=== PATIENT | male | born 1960 | race Two or more races ===

== ENCOUNTER 2022-01-17 17:22 | Inpatient (IN) | payer MEDICAID, OTHER ==
[~2022-01-17] VITALS: Ht 175.3 cm; Wt 73.5 kg
[~2022-01-17 17:22] MED LIST: CALCIUM CHLOR(10%) 100MG/ML 10ML SYRINGE IV ONE; SODIUM BICARBONATE 8.4% INJ 50ML SYRINGE IV ONE
[2022-01-17] MEDS ORDERED: DEXTROSE (50%) 50ML SYRG IV ONE (17:26)
[2022-01-17] MEDS ORDERED: DEXTROSE 50% SYRINGE 50 ML IV ONE (17:26)
[2022-01-17] MEDS ORDERED: SODIUM BICARBONATE 8.4 % INJ 50ML VIAL IV ONE (17:30)
[2022-01-17] MEDS ORDERED: levETIRAcetam 500 MG/5ML INJ IV ONE (17:31)
[2022-01-17] MEDS ORDERED: CALCIUM CHL 100MG/ML 1,000 MG in D5W 5% 100 ML IV ONE (17:33)
[2022-01-17] MEDS ORDERED: LACTATED RINGER'S 1,000 ML IV ONE (17:45)
[2022-01-17] MEDS ORDERED: GLUCAGON HYDROCHLORIDE (RDNA) 1 MG VIAL IV ONE (19:00)
[2022-01-17] MEDS ORDERED: DEXTROSE 10% 1,000 ML IV ONE (19:00)
[2022-01-17 19:12] LABS: Alanine Aminotransferase 59 U/L (16-61); Albumin 3.3 g/dL (3.4-5.0); Anion Gap 10 (5-15); Aspartate Aminotransferase 40 U/L (15-37); Blood Urea Nitrogen 52 mg/dL (7-18); Calcium 9.9 mg/dL (8.5-10.1); Carbon Dioxide 26 mmol/L (21-32); Chloride 106 mmol/L (98-107); GFR African American 15 mL/min; GFR Non-African American 12 mL/min; Glucose 106 mg/dL (74-106); Magnesium 2.5 mg/dL (1.6-2.6); Salicylate < 1.7 mg/dL (2.8-20.0); Sodium 142 mmol/L (136-145)
[2022-01-17 19:14] LABS: Acetaminophen < 2.0 ug/mL (10-30)
[2022-01-17 19:15] LABS: Alkaline Phosphatase 120 U/L (45-117); Bilirubin, Total 0.4 mg/dL (0.2-1.0); Total Protein 7.3 g/dL (6.4-8.2)
[2022-01-17] MEDS ORDERED: NALOXONE HCL 1MG/ML 2ML SYRINGE IV ONE (20:30)
[2022-01-17 20:40] LABS: Hematocrit 36.5 % (41.0-53.0); Mean Corpuscular Hemoglobin 31.4 pg (28.0-32.0); Mean Corpuscular Hgb Conc. 32.7 g/dL (32.0-36.0); Mean Corpuscular Volume 95.9 fL (80.0-100.0); Red Blood Cells 3.81 10^6/uL (4.5-5.90); Red Cell Distribution Width 13.8 % (11.8-14.3); White Blood Cell 11.5 10^3/uL (4.4-10.8)
[2022-01-17 20:42] LABS: Basophils % (manual) 0 (0.0-2.0); Blast Cells 0; Metamyelocytes % 0; Myelocytes % 0; Promyelocytes % 0; Reactive Lymphocytes 0
[2022-01-17 21:52] LABS: Band Neutrophils % (manual) 2; Eosinophils % (manual) 25 (0-7); Lymphocytes % (manual) 4 (10.0-50.0); Monocytes % (manual) 5 (0-12)
[2022-01-18] MEDS ORDERED: NITROGLYCERIN 0.4 MG SL TAB SL PRN (00:15)
[2022-01-18] MEDS ORDERED: ONDANSETRON HCL 4 MG/2 ML VIAL IV PRN (00:15)
[2022-01-18] MEDS ORDERED: MORPHINE SULFATE INJ 2 MG/ml SYRG IV PRN (00:15)
[2022-01-18] MEDS ORDERED: DOCUSATE SOD 100 MG CAP PO PRN (00:15)
[2022-01-18] MEDS ORDERED: ALBUMIN 25% 100 ML IV ONE (00:15)
[2022-01-18] MEDS ORDERED: DEXTROSE (50%) 50ML SYRG IV PRN (00:15)
[2022-01-18] MEDS ORDERED: ACETAMINOPHEN 325 MG TAB PO PRN (00:15)
[2022-01-18] MEDS ORDERED: HYDROcodone-ACET 5/325MG TAB PO PRN (00:15)
[2022-01-18] MEDS: SODIUM CHLOR 0.9% PF (SALINE LOCK) 10ML VIAL/SYR IV SCH ×3 (06:06→21:22)
[2022-01-18 06:16] LABS: Hematocrit 32.9 % (41.0-53.0); Hemoglobin 10.5 g/dL (13.5-17.5); Mean Corpuscular Hemoglobin 30.6 pg (28.0-32.0); Mean Corpuscular Volume 95.5 fL (80.0-100.0); Red Blood Cells 3.44 10^6/uL (4.5-5.90); Red Cell Distribution Width 14.3 % (11.8-14.3)
[2022-01-18] MEDS: InsuLIN REG 1unit/0.01ml Soln (100units/ml) SC SCH ×3 (06:27→18:00)
[2022-01-18] MEDS: ACCU-CHEK COMFORT CURVE STRIP VI SCH ×3 (06:28→18:00)
[2022-01-18 06:33] LABS: Albumin 3.4 g/dL (3.4-5.0); Calcium 9.3 mg/dL (8.5-10.1); Potassium 4.2 mmol/L (3.5-5.1)
[2022-01-18 06:37] LABS: BUN/Creatinine Ratio 11.2; Bilirubin, Total 0.4 mg/dL (0.2-1.0); Total Protein 6.9 g/dL (6.4-8.2)
[2022-01-18 06:52] LABS: Basophils % (manual) 0 (0.0-2.0); Blast Cells 0; Metamyelocytes % 0; Myelocytes % 0; Promyelocytes % 0; Reactive Lymphocytes 0
[2022-01-18 08:11] LABS: Band Neutrophils % (manual) 3; Eosinophils % (manual) 27 (0-7); Lymphocytes % (manual) 11 (10.0-50.0); Monocytes % (manual) 6 (0-12)
[2022-01-18] MEDS ORDERED: SODIUM CHL 0.9% 1000 ML BAG XX ONE (09:15)
[2022-01-18] MEDS: FAMOTIDINE (10MG/ML) 2ML VL IV SCH ×2 (12:55→21:16)
[2022-01-18 13:30] VITALS: BP 139/62
[2022-01-18 17:00] VITALS: BP 133/81
[2022-01-18] MEDS ORDERED: EPOETIN ALFA-EPBX 10,000 UNIT/1ML VIAL SC ONE (21:00)
[2022-01-18 22:00] VITALS: BP 148/69
[2022-01-18] MEDS ORDERED: LORazepam 2MG/ML-1ML VIAL IV PRN (22:15)
[2022-01-18 23:10] LABS: Cholesterol 96 mg/dL (< 200); LDL Cholesterol 44 mg/dL (< 100); Triglycerides 120 mg/dL (< 150)
[2022-01-18 23:13] LABS: HDL Cholesterol 45 mg/dL (40-59)
[2022-01-19 05:00] VITALS: BP 140/99
[2022-01-19] MEDS: ACCU-CHEK COMFORT CURVE STRIP VI SCH ×4 (05:48→17:48)
[2022-01-19] MEDS: SODIUM CHLOR 0.9% PF (SALINE LOCK) 10ML VIAL/SYR IV SCH ×3 (05:48→22:10)
[2022-01-19] MEDS: InsuLIN REG 1unit/0.01ml Soln (100units/ml) SC SCH ×4 (06:00→17:48)
[2022-01-19 06:39] LABS: Hematocrit 32.7 % (41.0-53.0); Hemoglobin 10.9 g/dL (13.5-17.5); Mean Corpuscular Hemoglobin 32.1 pg (28.0-32.0); Mean Corpuscular Hgb Conc. 33.4 g/dL (32.0-36.0); Mean Corpuscular Volume 96.3 fL (80.0-100.0); White Blood Cell 11.2 10^3/uL (4.4-10.8)
[2022-01-19 06:52] LABS: Band Neutrophils % (manual) 0; Basophils % (manual) 0 (0.0-2.0); Blast Cells 0; Metamyelocytes % 0; Myelocytes % 0; Promyelocytes % 0; Reactive Lymphocytes 0
[2022-01-19 06:54] LABS: Albumin 3.5 g/dL (3.4-5.0); BUN/Creatinine Ratio 9.6; Bilirubin, Total 0.6 mg/dL (0.2-1.0); Calcium 8.7 mg/dL (8.5-10.1); Potassium 4.4 mmol/L (3.5-5.1); Total Protein 6.7 g/dL (6.4-8.2)
[2022-01-19 08:38] LABS: Eosinophils % (manual) 40 (0-7); Lymphocytes % (manual) 8 (10.0-50.0); Monocytes % (manual) 1 (0-12)
[2022-01-19 09:00] VITALS: BP 125/71
[2022-01-19] MEDS: ASPirin-EC 81 mg tab PO SCH (11:39)
[2022-01-19] MEDS: FAMOTIDINE (10MG/ML) 2ML VL IV SCH ×2 (11:39→22:10)
[2022-01-19 13:00] VITALS: BP 138/84
[2022-01-19 16:48] VITALS: BP 140/77
[2022-01-19 22:00] VITALS: BP 165/67
[2022-01-19] MEDS: ATORVASTATIN 20 MG TAB PO SCH (22:10)
[2022-01-20 05:00] VITALS: BP 147/75
[2022-01-20] MEDS: InsuLIN REG 1unit/0.01ml Soln (100units/ml) SC SCH ×4 (06:00→18:00)
[2022-01-20] MEDS: ACCU-CHEK COMFORT CURVE STRIP VI SCH ×4 (06:32→18:00)
[2022-01-20] MEDS: SODIUM CHLOR 0.9% PF (SALINE LOCK) 10ML VIAL/SYR IV SCH ×3 (06:32→22:14)
[2022-01-20] MEDS: FAMOTIDINE (10MG/ML) 2ML VL IV SCH ×2 (10:18→22:09)
[2022-01-20] MEDS: ASPirin-EC 81 mg tab PO SCH (10:18)
[2022-01-20] MEDS ORDERED: SODIUM CHL 0.9% 1000 ML BAG XX ONE (15:30)
[2022-01-20] MEDS ORDERED: EPOETIN ALFA-EPBX 10,000 UNIT/1ML VIAL SC ONE (21:00)
[2022-01-20 22:00] VITALS: BP 136/72
[2022-01-20] MEDS: ATORVASTATIN 20 MG TAB PO SCH (22:09)
[2022-01-21] MEDS: InsuLIN REG 1unit/0.01ml Soln (100units/ml) SC SCH ×5 (00:23→23:12)
[2022-01-21] MEDS: ACCU-CHEK COMFORT CURVE STRIP VI SCH ×4 (00:24→18:08)
[2022-01-21 05:00] VITALS: BP 127/67
[2022-01-21] MEDS: SODIUM CHLOR 0.9% PF (SALINE LOCK) 10ML VIAL/SYR IV SCH ×3 (06:22→22:00)
[2022-01-21] MEDS ORDERED: EPOETIN ALFA-EPBX 10,000 UNIT/1ML VIAL SC ONE (08:00)
[2022-01-21 08:59] LABS: Free T4 (Free Thyroxine) 0.99 ng/dL (0.89-1.76)
[2022-01-21 09:00] LABS: Folate (Folic Acid) 6.95 ng/mL (5.38-24)
[2022-01-21] MEDS: FAMOTIDINE (10MG/ML) 2ML VL IV SCH ×2 (10:15→22:11)
[2022-01-21] MEDS: ASPirin-EC 81 mg tab PO SCH (10:15)
[2022-01-21 11:26] LABS: Hepatitis A Ab IgM Negative; Hepatitis B Core IgM Negative; Hepatitis C Antibody Negative (Negative)
[2022-01-21] MEDS: ATORVASTATIN 20 MG TAB PO SCH (22:00)
[2022-01-22] MEDS: ACCU-CHEK COMFORT CURVE STRIP VI SCH ×4 (02:28→19:28)
[2022-01-22] MEDS: SODIUM CHLOR 0.9% PF (SALINE LOCK) 10ML VIAL/SYR IV SCH ×3 (06:00→22:12)
[2022-01-22] MEDS: InsuLIN REG 1unit/0.01ml Soln (100units/ml) SC SCH ×3 (06:00→19:28)
[2022-01-22] MEDS ORDERED: SODIUM CHL 0.9% 1000 ML BAG XX ONE (07:00)
[2022-01-22 09:00] VITALS: BP 150/76
[2022-01-22] MEDS: ASPirin-EC 81 mg tab PO SCH (11:02)
[2022-01-22] MEDS: FAMOTIDINE (10MG/ML) 2ML VL IV SCH (11:02)
[2022-01-22 13:00] VITALS: BP 162/80
[2022-01-22 17:00] VITALS: BP 155/59
[2022-01-22] MEDS ORDERED: VANCOMYCIN 1GM/250ML 250 ML IV ONE (21:00)
[2022-01-22] MEDS ORDERED: VANCOMYCIN PER PHARMACY 0 MG IV SCH (21:00)
[2022-01-22] MEDS ORDERED: EPOETIN ALFA-EPBX 10,000 UNIT/1ML VIAL SC ONE (21:00)
[2022-01-22 22:00] VITALS: BP 152/83
[2022-01-22] MEDS: ATORVASTATIN 20 MG TAB PO SCH (22:12)
[2022-01-23] MEDS: ACCU-CHEK COMFORT CURVE STRIP VI SCH ×4 (00:28→17:41)
[2022-01-23] MEDS: InsuLIN REG 1unit/0.01ml Soln (100units/ml) SC SCH ×4 (00:28→17:48)
[2022-01-23 05:00] VITALS: BP 155/74
[2022-01-23] MEDS: SODIUM CHLOR 0.9% PF (SALINE LOCK) 10ML VIAL/SYR IV SCH ×3 (05:53→21:54)
[2022-01-23 06:54] LABS: Albumin 3.3 g/dL (3.4-5.0); BUN/Creatinine Ratio 9.7; Calcium 8.6 mg/dL (8.5-10.1); Phosphorus 4.4 mg/dL (2.5-4.90); Potassium 4.8 mmol/L (3.5-5.1)
[2022-01-23 09:00] VITALS: BP 150/79
[2022-01-23] MEDS ORDERED: HEPARIN 1,000 UNITS/ml 1ML VIAL IV ONE ×2 (10:30)
[2022-01-23] MEDS: ASPirin-EC 81 mg tab PO SCH (10:38)
[2022-01-23 13:00] VITALS: BP 133/82
[2022-01-23] MEDS ORDERED: VANCOMYCIN 1GM/250ML 250 ML IV ONE (14:15)
[2022-01-23 16:36] VITALS: BP 144/76
[2022-01-23 21:36] VITALS: BP 136/78
[2022-01-23] MEDS: ATORVASTATIN 20 MG TAB PO SCH (21:54)
[2022-01-24 04:50] VITALS: BP 138/79
[2022-01-24 05:22] LABS: Hematocrit 31.6 % (41.0-53.0); Hemoglobin 10.5 g/dL (13.5-17.5); Mean Corpuscular Hgb Conc. 33.4 g/dL (32.0-36.0); Mean Corpuscular Volume 95.8 fL (80.0-100.0); Red Cell Distribution Width 13.9 % (11.8-14.3); White Blood Cell 9.2 10^3/uL (4.4-10.8)
[2022-01-24 05:27] LABS: Potassium 4.5 mmol/L (3.5-5.1)
[2022-01-24 05:33] LABS: Albumin 3.2 g/dL (3.4-5.0); BUN/Creatinine Ratio 9.1; Calcium 8.8 mg/dL (8.5-10.1)
[2022-01-24 05:36] LABS: Basophils % (manual) 0 (0.0-2.0); Blast Cells 0; Metamyelocytes % 0; Myelocytes % 0; Promyelocytes % 0; Reactive Lymphocytes 0
[2022-01-24 05:42] LABS: Bilirubin, Total 0.3 mg/dL (0.2-1.0); Total Protein 6.8 g/dL (6.4-8.2)
[2022-01-24] MEDS: InsuLIN REG 1unit/0.01ml Soln (100units/ml) SC SCH ×4 (06:00→17:46)
[2022-01-24] MEDS: ACCU-CHEK COMFORT CURVE STRIP VI SCH ×4 (06:10→17:32)
[2022-01-24] MEDS: SODIUM CHLOR 0.9% PF (SALINE LOCK) 10ML VIAL/SYR IV SCH ×3 (06:11→22:28)
[2022-01-24] MEDS ORDERED: PIPERACILLIN-TAZOB 0.75 GM in D5W 5% 50 ML IV SCH (08:15)
[2022-01-24 09:00] VITALS: BP_SYST 112; BP_SYST 158; BP_DIAS 61; BP_DIAS 74
[2022-01-24 09:39] LABS: Band Neutrophils % (manual) 2; Eosinophils % (manual) 51 (0-7); Lymphocytes % (manual) 10 (10.0-50.0); Monocytes % (manual) 4 (0-12)
[2022-01-24] MEDS: FAMOTIDINE (10MG/ML) 2ML VL IV SCH (10:20)
[2022-01-24] MEDS: ASPirin-EC 81 mg tab PO SCH (10:20)
[2022-01-24] MEDS: PIPERACILLIN-TAZOB 3.375GM 100 ML IV SCH ×2 (10:53→22:23)
[2022-01-24 13:00] VITALS: BP 144/70
[2022-01-24 18:11] VITALS: BP 162/79
[2022-01-24 22:00] VITALS: BP 138/79
[2022-01-24] MEDS: ATORVASTATIN 20 MG TAB PO SCH (22:23)
[2022-01-25] MEDS: ACCU-CHEK COMFORT CURVE STRIP VI SCH ×4 (00:03→17:31)
[2022-01-25] MEDS: InsuLIN REG 1unit/0.01ml Soln (100units/ml) SC SCH ×4 (00:16→17:30)
[2022-01-25 05:00] VITALS: BP 177/85
[2022-01-25] MEDS: SODIUM CHLOR 0.9% PF (SALINE LOCK) 10ML VIAL/SYR IV SCH ×3 (06:08→22:00)
[2022-01-25 06:09] LABS: Hematocrit 33.7 % (41.0-53.0); Hemoglobin 11.1 g/dL (13.5-17.5); Mean Corpuscular Hemoglobin 31.6 pg (28.0-32.0); Mean Corpuscular Hgb Conc. 32.9 g/dL (32.0-36.0); Mean Corpuscular Volume 96.2 fL (80.0-100.0); Red Cell Distribution Width 14.2 % (11.8-14.3); White Blood Cell 9.9 10^3/uL (4.4-10.8)
[2022-01-25 06:28] LABS: Basophils % (manual) 0 (0.0-2.0); Blast Cells 0; Metamyelocytes % 0; Myelocytes % 0; Promyelocytes % 0; Reactive Lymphocytes 0
[2022-01-25 06:33] LABS: Albumin 3.4 g/dL (3.4-5.0); Potassium 4.9 mmol/L (3.5-5.1)
[2022-01-25 06:35] LABS: BUN/Creatinine Ratio 9.9; Calcium 9.2 mg/dL (8.5-10.1)
[2022-01-25 06:39] LABS: Bilirubin, Total 0.5 mg/dL (0.2-1.0)
[2022-01-25 08:36] LABS: Band Neutrophils % (manual) 3; Eosinophils % (manual) 51 (0-7); Lymphocytes % (manual) 9 (10.0-50.0); Monocytes % (manual) 4 (0-12)
[2022-01-25 09:00] VITALS: BP 158/75
[2022-01-25] MEDS: PIPERACILLIN-TAZOB 3.375GM 100 ML IV SCH (09:52)
[2022-01-25] MEDS: ASPirin-EC 81 mg tab PO SCH (09:52)
[2022-01-25] MEDS ORDERED: METOCLOPRAMIDE HCL 10 MG TAB PO PRN (12:30)
[2022-01-25 13:00] VITALS: BP 161/78
[2022-01-25] MEDS: PIPERACILLIN-TAZOB 2.25GM 50 ML IV SCH ×2 (14:00→22:09)
[2022-01-25] MEDS ORDERED: LIDOCAINE 2%HCL (LOCAL ANESTH.) INJ 10ml MDV IJ ONE (14:45)
[2022-01-25] MEDS ORDERED: LIDOCAINE 2% (LOCAL ANESTH.) PF 5ml SDV ONE (15:24)
[2022-01-25 17:19] VITALS: BP 161/89
[2022-01-25] MEDS ORDERED: VANCOMYCIN 1GM/250ML 250 ML IV ONE (18:00)
[2022-01-25] MEDS ORDERED: PIPERACILLIN-TAZOB 2.25GM 50 ML IV SCH (22:00)
[2022-01-25] MEDS: ATORVASTATIN 20 MG TAB PO SCH (23:09)
[2022-01-25] MEDS: hydrALAZINE HCL 20 MG/ML VL IV PRN (23:20)
[2022-01-26] MEDS: ACCU-CHEK COMFORT CURVE STRIP VI SCH ×5 (00:09→23:58)
[2022-01-26] MEDS: InsuLIN REG 1unit/0.01ml Soln (100units/ml) SC SCH ×5 (00:14→23:59)
[2022-01-26 03:00] VITALS: BP 144/76
[2022-01-26] MEDS: PIPERACILLIN-TAZOB 2.25GM 50 ML IV SCH ×3 (05:55→21:40)
[2022-01-26] MEDS: SODIUM CHLOR 0.9% PF (SALINE LOCK) 10ML VIAL/SYR IV SCH ×3 (05:55→21:39)
[2022-01-26 09:00] VITALS: BP 153/61
[2022-01-26] MEDS: FAMOTIDINE (10MG/ML) 2ML VL IV SCH (09:21)
[2022-01-26] MEDS: ASPirin-EC 81 mg tab PO SCH (09:23)
[2022-01-26 12:53] VITALS: BP 147/72
[2022-01-26 17:00] VITALS: BP 145/73
[2022-01-26] MEDS: ATORVASTATIN 20 MG TAB PO SCH (21:40)
[2022-01-26 21:52] VITALS: BP 163/81
[2022-01-27 04:30] VITALS: BP 156/68
[2022-01-27] MEDS: SODIUM CHLOR 0.9% PF (SALINE LOCK) 10ML VIAL/SYR IV SCH ×3 (06:33→21:36)
[2022-01-27] MEDS: ACCU-CHEK COMFORT CURVE STRIP VI SCH ×3 (06:33→17:03)
[2022-01-27] MEDS: PIPERACILLIN-TAZOB 2.25GM 50 ML IV SCH ×3 (06:33→21:36)
[2022-01-27] MEDS: InsuLIN REG 1unit/0.01ml Soln (100units/ml) SC SCH ×3 (06:35→17:03)
[2022-01-27 09:00] VITALS: BP 151/86
[2022-01-27] MEDS: ASPirin-EC 81 mg tab PO SCH (09:19)
[2022-01-27 09:52] LABS: BUN/Creatinine Ratio 9.6; Calcium 8.9 mg/dL (8.5-10.1)
[2022-01-27] MEDS: hydrALAZINE HCL 20 MG/ML VL IV PRN ×2 (12:21→21:58)
[2022-01-27 12:33] VITALS: BP 174/90
[2022-01-27] MEDS ORDERED: SODIUM ZIRCONIUM CYCL 10 GM PAK PO ONE ×2 (12:45)
[2022-01-27 13:05] VITALS: BP 133/70
[2022-01-27 17:00] VITALS: BP 147/81
[2022-01-27 21:30] VITALS: BP 179/93
[2022-01-27] MEDS: ATORVASTATIN 20 MG TAB PO SCH (21:37)
[2022-01-27] MEDS: LORazepam 2MG/ML-1ML VIAL IV PRN ×2 (21:55→21:56)
[2022-01-28] MEDS: ACCU-CHEK COMFORT CURVE STRIP VI SCH ×4 (00:57→18:32)
[2022-01-28] MEDS: InsuLIN REG 1unit/0.01ml Soln (100units/ml) SC SCH ×4 (00:58→18:48)
[2022-01-28 05:00] VITALS: BP 168/87
[2022-01-28] MEDS: SODIUM CHLOR 0.9% PF (SALINE LOCK) 10ML VIAL/SYR IV SCH ×3 (05:27→21:22)
[2022-01-28] MEDS: PIPERACILLIN-TAZOB 2.25GM 50 ML IV SCH (05:28)
[2022-01-28 05:51] LABS: Hematocrit 35.2 % (41.0-53.0); Hemoglobin 11.6 g/dL (13.5-17.5); Mean Corpuscular Hemoglobin 31.8 pg (28.0-32.0); Mean Corpuscular Hgb Conc. 32.9 g/dL (32.0-36.0); Mean Corpuscular Volume 96.7 fL (80.0-100.0); Red Blood Cells 3.64 10^6/uL (4.5-5.90); Red Cell Distribution Width 14.4 % (11.8-14.3); White Blood Cell 9.9 10^3/uL (4.4-10.8)
[2022-01-28 06:02] LABS: INR 1.02 (0.9-1.15); Partial Thromboplastin Time 27.1 sec (24.6-33.4)
[2022-01-28 06:05] LABS: Band Neutrophils % (manual) 0; Basophils % (manual) 0 (0.0-2.0); Blast Cells 0; Metamyelocytes % 0; Myelocytes % 0; Promyelocytes % 0; Reactive Lymphocytes 0
[2022-01-28] MEDS ORDERED: SODIUM CHL 0.9% 1000 ML BAG XX ONE (07:00)
[2022-01-28 07:15] LABS: Eosinophils % (manual) 42 (0-7); Lymphocytes % (manual) 16 (10.0-50.0); Monocytes % (manual) 3 (0-12)
[2022-01-28 08:57] VITALS: BP 147/79
[2022-01-28] MEDS: ASPirin-EC 81 mg tab PO SCH (11:00)
[2022-01-28] MEDS: FAMOTIDINE (10MG/ML) 2ML VL IV SCH (11:00)
[2022-01-28 11:31] LABS: BUN/Creatinine Ratio 8.9
[2022-01-28 12:37] LABS: Potassium 5.6 mmol/L (3.5-5.1)
[2022-01-28] MEDS ORDERED: DEXTROSE (50%) 50ML SYRG IV ONE (14:00)
[2022-01-28] MEDS ORDERED: CALCIUM GLUC 1,000mg/50ml-NS 50 ML IV ONE (14:00)
[2022-01-28] MEDS ORDERED: ALBUTEROL SULF 2.5 MG/0.5ML(0.5%) NEB SOLN NEB ONE (14:00)
[2022-01-28] MEDS ORDERED: InsuLIN REG 1unit/0.01ml Soln (100units/ml) IV SCH (14:00)
[2022-01-28] MEDS ORDERED: InsuLIN REG 1unit/0.01ml Soln (100units/ml) IV ONE (14:15)
[2022-01-28] MEDS: SODIUM ZIRCONIUM CYCL 10 GM PAK PO SCH ×2 (15:17→21:21)
[2022-01-28] MEDS ORDERED: VANCOMYCIN 1GM/250ML 250 ML IV ONE (18:00)
[2022-01-28 20:00] VITALS: BP 155/84
[2022-01-28] MEDS ORDERED: EPOETIN ALFA-EPBX 10,000 UNIT/1ML VIAL SC ONE (21:00)
[2022-01-28] MEDS: ATORVASTATIN 20 MG TAB PO SCH (21:21)
[2022-01-28 22:00] VITALS: BP 155/84
[2022-01-29] VITALS (10 sets, daily range): BP systolic 114–160; BP diastolic 62–83
[2022-01-29] MEDS: ACCU-CHEK COMFORT CURVE STRIP VI SCH ×2 (01:56→06:21)
[2022-01-29 05:44] LABS: Hematocrit 33.9 % (41.0-53.0); Hemoglobin 11.1 g/dL (13.5-17.5); Mean Corpuscular Hemoglobin 32.2 pg (28.0-32.0); Mean Corpuscular Hgb Conc. 32.9 g/dL (32.0-36.0); Mean Corpuscular Volume 97.8 fL (80.0-100.0); Red Blood Cells 3.46 10^6/uL (4.5-5.90); Red Cell Distribution Width 14.6 % (11.8-14.3); White Blood Cell 10.5 10^3/uL (4.4-10.8)
[2022-01-29] MEDS: hydrALAZINE HCL 20 MG/ML VL IV PRN (05:56)
[2022-01-29] MEDS: SODIUM ZIRCONIUM CYCL 10 GM PAK PO SCH (05:57)
[2022-01-29] MEDS: SODIUM CHLOR 0.9% PF (SALINE LOCK) 10ML VIAL/SYR IV SCH (05:57)
[2022-01-29] MEDS: InsuLIN REG 1unit/0.01ml Soln (100units/ml) SC SCH ×2 (06:00)
[2022-01-29 06:19] LABS: Potassium 5.6 mmol/L (3.5-5.1)
[2022-01-29 06:20] LABS: BUN/Creatinine Ratio 8.8
[2022-01-29 06:27] LABS: Basophils % (manual) 0 (0.0-2.0); Blast Cells 0; Metamyelocytes % 0; Myelocytes % 0; Promyelocytes % 0; Reactive Lymphocytes 0
[2022-01-29] MEDS ORDERED: SODIUM CHL 0.9% 1000 ML BAG XX ONE (07:00)
[2022-01-29] MEDS ORDERED: LIDOCAINE 2%HCL (LOCAL ANESTH.) INJ 20ML MDV ONE (09:11)
[2022-01-29 09:19] LABS: Band Neutrophils % (manual) 5; Eosinophils % (manual) 30 (0-7); Lymphocytes % (manual) 14 (10.0-50.0); Monocytes % (manual) 4 (0-12)
[2022-01-29] MEDS ORDERED: fentaNYL CITRATE 100 MCG/2 ML VL ONE (09:28)
[2022-01-29] MEDS ORDERED: MIDAZOLAM HCL 2MG/2ML 2ml VIAL (1mg/ml) ONE (09:28)
[2022-01-29] MEDS ORDERED: HEPARIN SODIUM (PORCINE) 5000 UNITS/ML 1ML VIAL ONE (09:28)
[2022-01-29] MEDS ORDERED: ATOR20TA50 PO (11:42)
[2022-01-29] MEDS ORDERED: ASPI-543 PO (11:42)
[2022-01-29] MEDS ORDERED: EPOETIN ALFA-EPBX 10,000 UNIT/1ML VIAL SC ONE (21:00)
== END 2022-01-29 17:00 | disposition home health service (06) | DRG 52 ==
LOC: EDBD 17:22 → ER 17:22 → TELE 01-18 00:30 → TELE-WESTW 01-18 13:07
PROVIDERS: ADMIT Nurse Practitioner Family; ATTEND Internal Medicine
PROC: 5A1D70Z Performance of Urinary Filtration, Intermittent, Less than 6 Hours Per Day (ICD-10-PCS; 2022-01-18)
PROC: 5A1D70Z Performance of Urinary Filtration, Intermittent, Less than 6 Hours Per Day (ICD-10-PCS; 2022-01-20)
PROC: 05HD33Z Insertion of Infusion Device into Right Cephalic Vein, Percutaneous Approach (ICD-10-PCS; principal; 2022-01-21)
PROC: B54MZZA Ultrasonography of Right Upper Extremity Veins, Guidance (ICD-10-PCS; 2022-01-21)
PROC: 5A1D70Z Performance of Urinary Filtration, Intermittent, Less than 6 Hours Per Day (ICD-10-PCS; 2022-01-23)
PROC: 5A1D70Z Performance of Urinary Filtration, Intermittent, Less than 6 Hours Per Day (ICD-10-PCS; 2022-01-25)
PROC: 5A1D70Z Performance of Urinary Filtration, Intermittent, Less than 6 Hours Per Day (ICD-10-PCS; 2022-01-29)
PROC: 0JH63XZ Insertion of Tunneled Vascular Access Device into Chest Subcutaneous Tissue and Fascia, Percutaneous Approach (ICD-10-PCS; 2022-01-29)
PROC: 02HV33Z Insertion of Infusion Device into Superior Vena Cava, Percutaneous Approach (ICD-10-PCS; 2022-01-29)
PROC: B5181ZA Fluoroscopy of Superior Vena Cava using Low Osmolar Contrast, Guidance (ICD-10-PCS; 2022-01-29)
PROC: B548ZZA Ultrasonography of Superior Vena Cava, Guidance (ICD-10-PCS; 2022-01-29)
DX: G93.41 Metabolic encephalopathy (principal); J96.01 Acute respiratory failure with hypoxia; R78.81 Bacteremia; N17.9 Acute kidney failure, unspecified; E11.649 Type 2 diabetes mellitus with hypoglycemia without coma; E88.09 Other disorders of plasma-protein metabolism, not elsewhere classified; I12.0 Hypertensive chronic kidney disease with stage 5 chronic kidney disease or end stage renal disease; B95.7 Other staphylococcus as the cause of diseases classified elsewhere; E11.22 Type 2 diabetes mellitus with diabetic chronic kidney disease; G40.401 Other generalized epilepsy and epileptic syndromes, not intractable, with status epilepticus; F01.50 Vascular dementia, unspecified severity, without behavioral disturbance, psychotic disturbance, mood disturbance, and anxiety; N18.6 End stage renal disease; Z20.822 Contact with and (suspected) exposure to COVID-19; D64.9 Anemia, unspecified; E78.5 Hyperlipidemia, unspecified; F02.80 Dementia in other diseases classified elsewhere, unspecified severity, without behavioral disturbance, psychotic disturbance, mood disturbance, and anxiety; G30.9 Alzheimer's disease, unspecified; H54.61 Unqualified visual loss, right eye, normal vision left eye; Z79.82 Long term (current) use of aspirin; Z86.73 Personal history of transient ischemic attack (TIA), and cerebral infarction without residual deficits; Z99.2 Dependence on renal dialysis; Z79.899 Other long term (current) drug therapy
CPT/HCPCS: 36415; 36558; 36600; 70450; 70551; 71045; 76942; 77001; 80048; 80053; 80061; 80069; 80074; 80202; 80320; 80329; 82607; 82746; 82805; 82962; 83036; 83735; 84439; 84443; 85007; 85018; 85027; 85610; 85730; 87040; 87070; 87077; 87081; 87186; 87205; 87426; 90935; 93005; 93306; 94640; 95819; 96365; 96367; 96375; 97163; 99152; 99291; G0378; J1642; J1815; J2001; J2250; J2543; J3490; J7060; P9047

== ENCOUNTER 2023-01-06 14:14 | Inpatient (IN) | payer MEDICAID ==
[~2023-01-06] VITALS: Ht 172.7 cm; Wt 67.5 kg
[~2023-01-06 14:14] MED LIST changes: +ASPI-543 PO; +ATOR20TA50 PO; -CALCIUM CHLOR(10%) 100MG/ML 10ML SYRINGE IV ONE; -SODIUM BICARBONATE 8.4% INJ 50ML SYRINGE IV ONE
[2023-01-06] MEDS ORDERED: ASPirin-EC 81 mg tab PO ONE (15:00)
[2023-01-06] MEDS ORDERED: FUROSEMIDE 40 MG/4 ML VIAL IV ONE (15:00)
[2023-01-06] MEDS ORDERED: NITROGLYCERIN 2% OINT 1GM PKG TD ONE (15:00)
[2023-01-06 15:10] LABS: Hematocrit 32.4 % (41.0-53.0); Hemoglobin 10.2 g/dL (13.5-17.5); Mean Corpuscular Hemoglobin 30.8 pg (28.0-32.0); Mean Corpuscular Hgb Conc. 31.6 g/dL (32.0-36.0); Mean Corpuscular Volume 97.2 fL (80.0-100.0); Red Blood Cells 3.33 10^6/uL (4.5-5.90); Red Cell Distribution Width 17.2 % (11.8-14.3); White Blood Cell 9.1 10^3/uL (4.4-10.8)
[2023-01-06 15:28] LABS: INR 1.14 (0.9-1.15); Partial Thromboplastin Time 36.8 SEC (24.5-34.5); Prothrombin Time 11.9 sec (9.3-11.8)
[2023-01-06 15:30] LABS: Alanine Aminotransferase 25 U/L (7-40); Albumin 3.7 g/dL (3.2-4.8); Alkaline Phosphatase 84 U/L (46-116); Anion Gap 5 (5-15); Aspartate Aminotransferase 18 U/L (13-40); BUN/Creatinine Ratio 6.8 (10.0-20.0); Bilirubin, Total 0.5 mg/dL (0.2-1.0); Blood Urea Nitrogen 27 mg/dL (9-23); Calcium 8.5 mg/dL (8.7-10.4); Carbon Dioxide 31 mmol/L (20-30); Chloride 103 mmol/L (98-107); Glucose 78 mg/dL (74-106); Potassium 3.7 mmol/L (3.5-5.1); Sodium 139 mmol/L (136-145); Total Protein 6.1 g/dL (5.7-8.2)
[2023-01-06 15:49] LABS: Band Neutrophils % (manual) 0; Basophils % (manual) 0 (0.0-2.0); Blast Cells 0; Metamyelocytes % 0; Myelocytes % 0; Promyelocytes % 0; Reactive Lymphocytes 0
[2023-01-06 16:05] VITALS: PULSE 79; O2SAT 96
[2023-01-06] MEDS ORDERED: levoFLOXacin 750MG 150 ML IV ONE (16:45)
[2023-01-06 17:51] LABS: Anisocytosis Slight; Eosinophils % (manual) 24 (0-7); Large Platelets FEW; Lymphocytes % (manual) 7 (10.0-50.0); Monocytes % (manual) 7 (0-12); Platelet Estimate Adequate
[2023-01-06 19:50] VITALS: PULSE 79; O2SAT 100
[2023-01-06] MEDS ORDERED: ALBUTEROL SULF 2.5 MG/0.5ML(0.5%) NEB SOLN NEB PRN (22:00)
[2023-01-06] MEDS: CARVEDILOL 3.125 MG TAB PO SCH (22:00)
[2023-01-06] MEDS ORDERED: ONDANSETRON HCL 4 MG/2 ML VIAL IV PRN (22:00)
[2023-01-06] MEDS: hydrALAZINE HCL 25 MG TAB PO SCH (22:00)
[2023-01-06] MEDS: InsuLIN REG 1unit/0.01ml Soln (100units/ml) SC SCH (22:00)
[2023-01-06] MEDS ORDERED: ACETAMINOPHEN 325 MG TAB PO PRN (22:00)
[2023-01-06] MEDS ORDERED: MORPHINE SULFATE INJ 2 MG/ml SYRG IV PRN (22:00)
[2023-01-06] MEDS ORDERED: NITROGLYCERIN 0.4 MG SL TAB SL PRN (22:00)
[2023-01-06] MEDS ORDERED: DEXTROSE (50%) 50ML SYRG IV PRN (22:00)
[2023-01-06] MEDS: ACCU-CHEK COMFORT CURVE STRIP VI SCH (23:21)
[2023-01-06] MEDS: APIXABAN 5 MG TAB PO SCH (23:25)
[2023-01-06] MEDS: ATORVASTATIN 20 MG TAB PO SCH (23:25)
[2023-01-07] VITALS (7 sets, daily range): BP systolic 124–145; BP diastolic 73–83; PULSE 68–80; RESP 16–20; TEMP 98.1–98.3; O2SAT 97–99
[2023-01-07 05:25] LABS: Hematocrit 33.6 % (41.0-53.0); Hemoglobin 10.8 g/dL (13.5-17.5); Mean Corpuscular Hemoglobin 31.6 pg (28.0-32.0); Mean Corpuscular Hgb Conc. 32.2 g/dL (32.0-36.0); Mean Corpuscular Volume 98.2 fL (80.0-100.0); Red Blood Cells 3.42 10^6/uL (4.5-5.90); Red Cell Distribution Width 17.5 % (11.8-14.3); White Blood Cell 7.2 10^3/uL (4.4-10.8)
[2023-01-07 05:27] LABS: Band Neutrophils % (manual) 0; Basophils % (manual) 0 (0.0-2.0); Blast Cells 0; Metamyelocytes % 0; Myelocytes % 0; Promyelocytes % 0; Reactive Lymphocytes 0
[2023-01-07 05:42] LABS: Alanine Aminotransferase 23 U/L (7-40); Albumin 3.6 g/dL (3.2-4.8); Alkaline Phosphatase 79 U/L (46-116); Anion Gap 8 (5-15); Aspartate Aminotransferase 30 U/L (13-40); BUN/Creatinine Ratio 5.3 (10.0-20.0); Blood Urea Nitrogen 25 mg/dL (9-23); Calcium 8.8 mg/dL (8.7-10.4); Carbon Dioxide 27 mmol/L (20-30); Chloride 104 mmol/L (98-107); Glucose 62 mg/dL (74-106); Potassium 4.1 mmol/L (3.5-5.1); Sodium 139 mmol/L (136-145)
[2023-01-07 05:43] LABS: Bilirubin, Total 0.5 mg/dL (0.2-1.0); Total Protein 6.1 g/dL (5.7-8.2)
[2023-01-07] MEDS: ACCU-CHEK COMFORT CURVE STRIP VI SCH ×4 (06:47→22:16)
[2023-01-07] MEDS: InsuLIN REG 1unit/0.01ml Soln (100units/ml) SC SCH ×4 (06:47→22:19)
[2023-01-07] MEDS: CALCIUM ACETATE 667 MG CAP PO SCH ×3 (08:36→18:13)
[2023-01-07] MEDS: cefTRIAXone 1GM/50ML D5W 50 ML IV SCH (08:45)
[2023-01-07 08:50] LABS: Eosinophils % (manual) 14 (0-7); Lymphocytes % (manual) 6 (10.0-50.0); Monocytes % (manual) 7 (0-12); Platelet Estimate Adequate
[2023-01-07] MEDS ORDERED: FUROSEMIDE 20 MG TAB PO SCH (10:00)
[2023-01-07] MEDS ORDERED: ASPirin 81 mg TAB PO SCH (10:00)
[2023-01-07] MEDS ORDERED: amLODIPine BESYLATE 5 MG TAB PO SCH (10:00)
[2023-01-07] MEDS: hydrALAZINE HCL 25 MG TAB PO SCH ×2 (10:18→22:16)
[2023-01-07] MEDS: CARVEDILOL 3.125 MG TAB PO SCH ×2 (10:19→22:16)
[2023-01-07] MEDS: APIXABAN 5 MG TAB PO SCH ×2 (10:19→22:16)
[2023-01-07] MEDS: amLODIPine BESYLATE 5 MG TAB PO SCH (10:30)
[2023-01-07] MEDS: ASPirin 81 mg TAB PO SCH (10:30)
[2023-01-07 10:55] LABS: LDL Cholesterol 38 mg/dL (< 100); Triglycerides 84 mg/dL (< 150)
[2023-01-07 10:56] LABS: Cholesterol 92 mg/dL (< 200); HDL Cholesterol 35 mg/dL (40-59)
[2023-01-07] MEDS: EMPAGLIFLOZIN 10 MG TAB PO SCH (10:57)
[2023-01-07] MEDS: AZITHROMYCIN 500MG/ 250ML 250 ML IV SCH (11:04)
[2023-01-07] MEDS ORDERED: LOSA50TA46 PO (18:09)
[2023-01-07] MEDS ORDERED: INSU1INJ19 SC (18:09)
[2023-01-07] MEDS ORDERED: AMLO1TAB23 PO (18:09)
[2023-01-07] MEDS ORDERED: HYDR-4297 PO (18:09)
[2023-01-07] MEDS ORDERED: CARV6.2551 PO (18:09)
[2023-01-07] MEDS ORDERED: APIX5TAB PO (18:09)
[2023-01-07] MEDS ORDERED: CALC10TA PO (18:09)
[2023-01-07] MEDS ORDERED: ATOR-47 PO (18:10)
[2023-01-07] MEDS: FUROSEMIDE 20 MG/2 ML VIAL IV SCH (18:13)
[2023-01-07] MEDS: ATORVASTATIN 20 MG TAB PO SCH (22:16)
[2023-01-08] VITALS (9 sets, daily range): BP systolic 99–133; BP diastolic 51–65; PULSE 76–84; RESP 16–20; TEMP 97.4–98.7; O2SAT 90–99
[2023-01-08] MEDS: FUROSEMIDE 20 MG/2 ML VIAL IV SCH ×2 (06:36→17:53)
[2023-01-08] MEDS: ACCU-CHEK COMFORT CURVE STRIP VI SCH ×4 (06:37→21:49)
[2023-01-08] MEDS: EMPAGLIFLOZIN 10 MG TAB PO SCH (06:37)
[2023-01-08] MEDS: InsuLIN REG 1unit/0.01ml Soln (100units/ml) SC SCH ×4 (06:37→22:02)
[2023-01-08] MEDS ORDERED: SODIUM CHL 0.9% 1000 ML BAG XX ONE (07:00)
[2023-01-08] MEDS: ASPirin 81 mg TAB PO SCH (08:32)
[2023-01-08] MEDS: cefTRIAXone 1GM/50ML D5W 50 ML IV SCH (08:32)
[2023-01-08] MEDS: CARVEDILOL 3.125 MG TAB PO SCH ×2 (08:33→22:00)
[2023-01-08] MEDS: amLODIPine BESYLATE 5 MG TAB PO SCH (08:33)
[2023-01-08] MEDS: APIXABAN 5 MG TAB PO SCH (08:34)
[2023-01-08] MEDS: hydrALAZINE HCL 25 MG TAB PO SCH ×2 (08:34→22:00)
[2023-01-08] MEDS: CALCIUM ACETATE 667 MG CAP PO SCH ×3 (08:34→17:51)
[2023-01-08] MEDS: ISOSORBIDE MONONITRATE ER 60 MG TAB PO SCH ×2 (09:40→10:00)
[2023-01-08] MEDS: AZITHROMYCIN 500MG/ 250ML 250 ML IV SCH (09:40)
[2023-01-08 10:26] LABS: Hematocrit 30.4 % (41.0-53.0); Hemoglobin 9.7 g/dL (13.5-17.5); Mean Corpuscular Hemoglobin 30.7 pg (28.0-32.0); Mean Corpuscular Hgb Conc. 31.8 g/dL (32.0-36.0); Mean Corpuscular Volume 96.6 fL (80.0-100.0); Red Blood Cells 3.15 10^6/uL (4.5-5.90); Red Cell Distribution Width 17.3 % (11.8-14.3); White Blood Cell 8.3 10^3/uL (4.4-10.8)
[2023-01-08 10:35] LABS: Chloride 101 mmol/L (98-107); Potassium 4.2 mmol/L (3.5-5.1); Sodium 135 mmol/L (136-145)
[2023-01-08 10:36] LABS: Anion Gap 5 (5-15); Calcium 8.3 mg/dL (8.7-10.4); Carbon Dioxide 29 mmol/L (20-30)
[2023-01-08 10:41] LABS: BUN/Creatinine Ratio 7.1 (10.0-20.0); Band Neutrophils % (manual) 0; Basophils % (manual) 0 (0.0-2.0); Blast Cells 0; Metamyelocytes % 0; Myelocytes % 0; Promyelocytes % 0; Reactive Lymphocytes 0
[2023-01-08 10:46] LABS: Glucose 172 mg/dL (74-106)
[2023-01-08 10:47] LABS: Blood Urea Nitrogen 42 mg/dL (9-23)
[2023-01-08 11:30] LABS: Eosinophils % (manual) 12 (0-7); Lymphocytes % (manual) 8 (10.0-50.0); Monocytes % (manual) 9 (0-12)
[2023-01-08 11:31] LABS: Platelet Estimate Adequate
[2023-01-08] MEDS ORDERED: ISOSORBIDE MONONITRATE ER 60 MG TAB PO SCH (14:00)
[2023-01-08] MEDS: ATORVASTATIN 20 MG TAB PO SCH (22:00)
[2023-01-09] VITALS (7 sets, daily range): BP systolic 102–137; BP diastolic 52–73; PULSE 77–91; RESP 16–20; TEMP 97.7–98.9; O2SAT 94–98
[2023-01-09] MEDS: FUROSEMIDE 20 MG/2 ML VIAL IV SCH ×2 (06:00→17:42)
[2023-01-09] MEDS: EMPAGLIFLOZIN 10 MG TAB PO SCH (06:02)
[2023-01-09] MEDS: InsuLIN REG 1unit/0.01ml Soln (100units/ml) SC SCH ×4 (06:03→21:38)
[2023-01-09] MEDS: ACCU-CHEK COMFORT CURVE STRIP VI SCH ×4 (06:06→21:34)
[2023-01-09 06:59] LABS: Calcium 8.8 mg/dL (8.5-10.1); Chloride 100 mmol/L (98-107); Sodium 137 mmol/L (136-145)
[2023-01-09 07:00] LABS: Anion Gap 9 (5-15); Carbon Dioxide 28 mmol/L (20-30)
[2023-01-09 07:01] LABS: Basophils # (auto) 0.1 10 ^3/uL (0-0.2); Basophils % (auto) 1.1 % (0.0-2.0); Eosinophils # (auto) 2.6 10 ^3/uL (0-0.8); Eosinophils % (auto) 30.1 % (0.0-7.0); Hematocrit 30.5 % (41.0-53.0); Hemoglobin 9.7 g/dL (13.5-17.5); Lymphocytes # (auto) 0.8 10 ^3/uL (0.4-5.4); Lymphocytes % (auto) 9.5 % (10.0-50.0); Mean Corpuscular Hemoglobin 31.1 pg (28.0-32.0); Mean Corpuscular Hgb Conc. 31.8 g/dL (32.0-36.0); Mean Corpuscular Volume 97.9 fL (80.0-100.0); Monocytes # (auto) 0.6 10 ^3/uL (0-1.3); Monocytes % (auto) 7.4 % (0.0-12.0); Neutrophils # (auto) 4.4 10 ^3/uL (1.6-8.6); Neutrophils % (auto) 51.9 % (37.0-80.0); Red Blood Cells 3.12 10^6/uL (4.5-5.90); Red Cell Distribution Width 17.3 % (11.8-14.3); White Blood Cell 8.5 10^3/uL (4.4-10.8)
[2023-01-09 07:05] LABS: BUN/Creatinine Ratio 7.3 (10.0-20.0); Blood Urea Nitrogen 47 mg/dL (9-23)
[2023-01-09 07:12] LABS: Glucose 64 mg/dL (74-106)
[2023-01-09] MEDS ORDERED: ALBUMIN 25% 100 ML IV PRN (07:30)
[2023-01-09] MEDS: CALCIUM ACETATE 667 MG CAP PO SCH ×3 (08:00→17:43)
[2023-01-09] MEDS ORDERED: LEVO750T40 PO (10:28)
[2023-01-09] MEDS: cefTRIAXone 1GM/50ML D5W 50 ML IV SCH (10:43)
[2023-01-09] MEDS: ASPirin 81 mg TAB PO SCH (10:44)
[2023-01-09] MEDS: hydrALAZINE HCL 25 MG TAB PO SCH ×2 (10:45→22:00)
[2023-01-09] MEDS: CARVEDILOL 3.125 MG TAB PO SCH ×2 (10:45→21:34)
[2023-01-09] MEDS: amLODIPine BESYLATE 5 MG TAB PO SCH (10:45)
[2023-01-09] MEDS: ISOSORBIDE MONONITRATE ER 60 MG TAB PO SCH (10:46)
[2023-01-09] MEDS: AZITHROMYCIN 500MG/ 250ML 250 ML IV SCH (14:22)
[2023-01-09] MEDS ORDERED: AMPICILLIN & SULBACTAM SODIUM 3 GM in SODIUM CHL 0.9% 100 ML IV SCH (17:30)
[2023-01-09] MEDS: ATORVASTATIN 20 MG TAB PO SCH (21:33)
[2023-01-10 05:00] VITALS: BP 130/67; PULSE 81; RESP 17; TEMP 98.1; O2SAT 93
[2023-01-10 06:07] LABS: Hematocrit 30.6 % (41.0-53.0); Hemoglobin 9.8 g/dL (13.5-17.5); Mean Corpuscular Hemoglobin 31.1 pg (28.0-32.0); Mean Corpuscular Hgb Conc. 31.9 g/dL (32.0-36.0); Mean Corpuscular Volume 97.3 fL (80.0-100.0); Red Blood Cells 3.15 10^6/uL (4.5-5.90); Red Cell Distribution Width 17.5 % (11.8-14.3); White Blood Cell 9.4 10^3/uL (4.4-10.8)
[2023-01-10] MEDS: EMPAGLIFLOZIN 10 MG TAB PO SCH (06:19)
[2023-01-10 06:21] LABS: Alanine Aminotransferase 22 U/L (7-40); Albumin 3.8 g/dL (3.2-4.8); Alkaline Phosphatase 69 U/L (46-116); Anion Gap 8 (5-15); Aspartate Aminotransferase 18 U/L (13-40); BUN/Creatinine Ratio 7.4 (10.0-20.0); Blood Urea Nitrogen 40 mg/dL (9-23); Calcium 8.7 mg/dL (8.7-10.4); Carbon Dioxide 29 mmol/L (20-30); Chloride 102 mmol/L (98-107); Glucose 88 mg/dL (74-106); Potassium 4.5 mmol/L (3.5-5.1); Sodium 139 mmol/L (136-145)
[2023-01-10 06:23] LABS: Band Neutrophils % (manual) 0; Basophils % (manual) 0 (0.0-2.0); Bilirubin, Total 0.4 mg/dL (0.2-1.0); Blast Cells 0; Metamyelocytes % 0; Myelocytes % 0; Promyelocytes % 0; Reactive Lymphocytes 0; Total Protein 6.1 g/dL (5.7-8.2)
[2023-01-10] MEDS: ACCU-CHEK COMFORT CURVE STRIP VI SCH ×2 (06:24→12:27)
[2023-01-10] MEDS: InsuLIN REG 1unit/0.01ml Soln (100units/ml) SC SCH ×2 (06:24→12:25)
[2023-01-10] MEDS: FUROSEMIDE 20 MG/2 ML VIAL IV SCH (06:25)
[2023-01-10 07:17] LABS: Eosinophils % (manual) 35 (0-7); Lymphocytes % (manual) 10 (10.0-50.0); Monocytes % (manual) 1 (0-12); Platelet Estimate Adequate
[2023-01-10 08:00] VITALS: BP 135/54; PULSE 83; PULSE 86; RESP 18; TEMP 98.2; O2SAT 95
[2023-01-10] MEDS: CALCIUM ACETATE 667 MG CAP PO SCH ×2 (08:30→12:28)
[2023-01-10 09:00] VITALS: BP 135/54; PULSE 86; RESP 18; TEMP 98.2; O2SAT 95
[2023-01-10] MEDS: ASPirin 81 mg TAB PO SCH (10:10)
[2023-01-10] MEDS: AZITHROMYCIN 500MG/ 250ML 250 ML IV SCH (10:10)
[2023-01-10] MEDS: hydrALAZINE HCL 25 MG TAB PO SCH (10:11)
[2023-01-10] MEDS: amLODIPine BESYLATE 5 MG TAB PO SCH (10:12)
[2023-01-10] MEDS: ISOSORBIDE MONONITRATE ER 60 MG TAB PO SCH (10:12)
[2023-01-10] MEDS: CARVEDILOL 3.125 MG TAB PO SCH (10:12)
[2023-01-10 11:57] VITALS: BP 135/54; PULSE 86; RESP 18; TEMP 98.2; O2SAT 95
[2023-01-10 13:00] VITALS: BP 113/41; PULSE 78; RESP 16; TEMP 98.2; O2SAT 93
[2023-01-10] MEDS ORDERED: EMPA1TAB PO (15:36)
[2023-01-10] MEDS ORDERED: FURO40TA4 PO (15:37)
[2023-01-10] MEDS ORDERED: ISOS60TA24 PO (15:40)
[2023-01-11] MEDS ORDERED: SODIUM CHL 0.9% 1000 ML BAG XX ONE (07:00)
[2023-01-11] MEDS ORDERED: EPOETIN ALFA-EPBX 4,000 UNIT/ML VIAL SC ONE (21:00)
== END 2023-01-10 16:04 | disposition home or self-care (01) | DRG 137 ==
LOC: EDBD 14:14 → ER 14:14 → TELE 22:05 → TELE-WESTW 01-07 17:44
PROVIDERS: ADMIT Internal Medicine
PROC: 5A1D70Z Performance of Urinary Filtration, Intermittent, Less than 6 Hours Per Day (ICD-10-PCS; principal; 2023-01-08)
DX: J15.69 Pneumonia due to other Gram-negative bacteria (principal); J96.01 Acute respiratory failure with hypoxia; I50.23 Acute on chronic systolic (congestive) heart failure; D68.9 Coagulation defect, unspecified; N18.6 End stage renal disease; D63.8 Anemia in other chronic diseases classified elsewhere; E11.22 Type 2 diabetes mellitus with diabetic chronic kidney disease; J15.9 Unspecified bacterial pneumonia; B95.62 Methicillin resistant Staphylococcus aureus infection as the cause of diseases classified elsewhere; I13.2 Hypertensive heart and chronic kidney disease with heart failure and with stage 5 chronic kidney disease, or end stage renal disease; H54.8 Legal blindness, as defined in USA; I50.9 Heart failure, unspecified; E78.5 Hyperlipidemia, unspecified; I69.30 Unspecified sequelae of cerebral infarction; Z99.2 Dependence on renal dialysis; Z86.718 Personal history of other venous thrombosis and embolism; Z79.82 Long term (current) use of aspirin
CPT/HCPCS: 36415; 71045; 71250; 80048; 80053; 80061; 82962; 83036; 83880; 84443; 84484; 85007; 85025; 85027; 85379; 85610; 85730; 87081; 87340; 90935; 93005; 93306; 93971; 96365; 96366; 96367; 96375; G0378; J0696; J1815; J1956; P9047

== ENCOUNTER 2023-02-19 10:10 | Inpatient (IN) | payer MEDICAID ==
[2023-02-19] VITALS (11 sets, daily range): BP systolic 117–151; BP diastolic 61–100; PULSE 50–72; RESP 16–29; TEMP 92.1; O2SAT 93–100
[~2023-02-19] VITALS: Ht 167.6 cm; Wt 54.1 kg
[~2023-02-19 10:10] MED LIST changes: +AMLO1TAB23 PO; +APIX5TAB PO; +ATOR-47 PO; -ATOR20TA50 PO; +CALC10TA PO; +CARV6.2551 PO; +EMPA1TAB PO; +FURO40TA4 PO; +HYDR-4297 PO; +INSU1INJ19 SC; +ISOS60TA24 PO; +LEVO750T40 PO; +LOSA50TA46 PO
[2023-02-19] MEDS ORDERED: EPINEPHrine HCL 250 ML IV ONE (10:18)
[2023-02-19] MEDS ORDERED: InsuLIN REG 1unit/0.01ml Soln (100units/ml) ONE (10:21)
[2023-02-19] MEDS: EPINEPHrine HCL 250 ML IV SCH (10:25)
[2023-02-19 10:51] LABS: Basophils # (auto) 0.1 10 ^3/uL (0-0.2); Eosinophils # (auto) 1.2 10 ^3/uL (0-0.8); Hemoglobin 11.7 g/dL (13.5-17.5); Monocytes # (auto) 0.4 10 ^3/uL (0-1.3)
[2023-02-19 10:53] LABS: Basophils % (auto) 0.7 % (0.0-2.0); Eosinophils % (auto) 10.3 % (0.0-7.0); Hematocrit 38.2 % (41.0-53.0); Lymphocytes # (auto) 2.2 10 ^3/uL (0.4-5.4); Lymphocytes % (auto) 18.4 % (10.0-50.0); Mean Corpuscular Hemoglobin 30.2 pg (28.0-32.0); Mean Corpuscular Hgb Conc. 30.6 g/dL (32.0-36.0); Mean Corpuscular Volume 98.9 fL (80.0-100.0); Monocytes % (auto) 3.7 % (0.0-12.0); Neutrophils # (auto) 8.1 10 ^3/uL (1.6-8.6); Neutrophils % (auto) 66.9 % (37.0-80.0); Nucleated Red Blood Cells % 0.2 %; Red Blood Cells 3.87 10^6/uL (4.5-5.90); Red Cell Distribution Width 17.4 % (11.8-14.3)
[2023-02-19] MEDS: DOPamine 1600MCG/ML D5W 250 ML IV SCH (11:00)
[2023-02-19] MEDS ORDERED: NOREPINEPHRINE 8 MG/250ML KIT 250 ML IV ONE (11:06)
[2023-02-19] MEDS ORDERED: DOPamine 1600MCG/ML D5W 250 ML IV ONE (11:06)
[2023-02-19] MEDS: NOREPINEPHRINE 8 MG/250ML KIT 250 ML IV SCH (11:25)
[2023-02-19] MEDS: fentaNYL Drip 2500mCg/250mlNS 250 ML IV SCH (11:33)
[2023-02-19] MEDS ORDERED: NITROGLYCERIN 0.4 MG SL TAB SL PRN (11:45)
[2023-02-19] MEDS ORDERED: ONDANSETRON HCL 4 MG/2 ML VIAL IV PRN (11:45)
[2023-02-19] MEDS ORDERED: HYDROcodone-ACET 5/325MG TAB PO PRN (11:45)
[2023-02-19] MEDS ORDERED: ACETAMINOPHEN 325 MG TAB PO PRN (11:45)
[2023-02-19] MEDS ORDERED: MORPHINE SULFATE INJ 2 MG/ml SYRG IV PRN ×2 (11:45)
[2023-02-19] MEDS ORDERED: PIPERACILLIN-TAZOB 3.375GM 100 ML IV SCH (12:00)
[2023-02-19 12:01] LABS: Partial Thromboplastin Time 31.1 SEC (24.5-34.5)
[2023-02-19 12:06] LABS: Prothrombin Time 13.5 sec (9.3-11.8)
[2023-02-19 12:07] LABS: INR 1.31 (0.9-1.15)
[2023-02-19 12:42] LABS: Alanine Aminotransferase 781 U/L (7-40); Albumin 3.7 g/dL (3.2-4.8); Alkaline Phosphatase 104 U/L (46-116); Anion Gap 19 (5-15); Aspartate Aminotransferase 989 U/L (13-40); BUN/Creatinine Ratio 8.4 (10.0-20.0); Bilirubin, Total 0.8 mg/dL (0.2-1.0); Blood Urea Nitrogen 51 mg/dL (9-23); Calcium 9.1 mg/dL (8.7-10.4); Carbon Dioxide 23 mmol/L (20-30); Chloride 104 mmol/L (98-107); Glucose 166 mg/dL (74-106); Potassium 4.3 mmol/L (3.5-5.1); Sodium 146 mmol/L (136-145); Total Protein 6.3 g/dL (5.7-8.2)
[2023-02-19] MEDS ORDERED: HEPARIN DRIP/D5W 100UNITS/ML 250 ML IV SCH ×2 (12:45→13:45)
[2023-02-19] MEDS ORDERED: VANCOMYCIN PER PHARMACY 0 MG IV SCH (13:00)
[2023-02-19] MEDS ORDERED: DEXTROSE (50%) 50ML SYRG IV PRN (13:00)
[2023-02-19] MEDS ORDERED: ASPirin-EC 325mg tab PO ONE (13:30)
[2023-02-19] MEDS: PROPOFOL 100 ML IV SCH (13:35)
[2023-02-19 13:47] LABS: Basophils # (auto) 0.1 10 ^3/uL (0-0.2); Basophils % (auto) 0.5 % (0.0-2.0); Eosinophils # (auto) 0.3 10 ^3/uL (0-0.8); Eosinophils % (auto) 2.1 % (0.0-7.0); Hematocrit 37.6 % (41.0-53.0); Hemoglobin 11.8 g/dL (13.5-17.5); Lymphocytes # (auto) 0.2 10 ^3/uL (0.4-5.4); Lymphocytes % (auto) 1.9 % (10.0-50.0); Mean Corpuscular Hemoglobin 29.9 pg (28.0-32.0); Mean Corpuscular Hgb Conc. 31.3 g/dL (32.0-36.0); Mean Corpuscular Volume 95.6 fL (80.0-100.0); Monocytes # (auto) 0.4 10 ^3/uL (0-1.3); Monocytes % (auto) 3.6 % (0.0-12.0); Neutrophils # (auto) 11.3 10 ^3/uL (1.6-8.6); Neutrophils % (auto) 91.9 % (37.0-80.0); Nucleated Red Blood Cells % 0.3 %; Red Blood Cells 3.94 10^6/uL (4.5-5.90); Red Cell Distribution Width 17.6 % (11.8-14.3); White Blood Cell 12.3 10^3/uL (4.4-10.8)
[2023-02-19] MEDS ORDERED: PIPERACILLIN-TAZOB 2.25GM 50 ML IV SCH (14:00)
[2023-02-19] MEDS ORDERED: VANCOMYCIN 1GM/200ML 250 ML IV ONE (14:00)
[2023-02-19 14:02] LABS: Base Excess -2.3 mmol/L (-2.0-2.0)
[2023-02-19 14:41] LABS: INR 1.36 (0.9-1.15)
[2023-02-19 14:48] LABS: Urine Amorphous Crystal FEW /hpf (None Seen); Urine Bacteria MOD /hpf (None Seen); Urine Blood TRACE /uL (Negative); Urine Clarity CLOUDY (Clear); Urine Color Yellow (Yellow); Urine Protein, UAD 3+ (Negative); Urine Sperm PRESENT /hpf (None Seen); Urine Urobilinogen Normal (Negative); Urine WBC 11 /hpf (0 - 3)
[2023-02-19] MEDS: MIDAZOLAM DRIP 50 mg/50mL 50 ML IV SCH (15:48)
[2023-02-19] MEDS: PHENYLEPHRINE INJ 80 MG in SODIUM CHL 0.9% 242 ML IV SCH (17:45)
[2023-02-19] MEDS: SEVELAMER 800 MG TAB PO SCH (18:54)
[2023-02-19] MEDS: PANTOPRAZOLE 40 MG/10 ML VIAL INJ IV SCH (19:04)
[2023-02-19] MEDS: ACCU-CHEK COMFORT CURVE STRIP VI SCH ×2 (20:09→22:45)
[2023-02-19] MEDS: InsuLIN REG 1unit/0.01ml Soln (100units/ml) SC SCH ×2 (20:12→22:49)
[2023-02-19 23:01] LABS: Partial Thromboplastin Time 64.1 SEC (24.5-34.5); Prothrombin Time 14.4 sec (9.3-11.8)
[2023-02-19 23:27] LABS: Amphetamine Screen, Urine Neg (NEGATIVE); Barbiturate Scree,Urine Neg (NEGATIVE); Benzodiazephine Screen, Urine Neg (NEGATIVE); Cannabinoid Screen, Urine Neg (NEGATIVE); Cocaine Screen, Urine Neg (NEGATIVE); Opiate Scree,Urine Neg (NEGATIVE); Phencyclidine Screen, Urine Neg (NEGATIVE)
[2023-02-20] VITALS (112 sets, daily range): BP systolic 82–147; BP diastolic 41–75; PULSE 60–93; RESP 14–21; TEMP 93–99.7; O2SAT 93–100
[2023-02-20 04:19] LABS: Basophils # (auto) 0 10 ^3/uL (0-0.2); Basophils % (auto) 0.2 % (0.0-2.0); Eosinophils # (auto) 0.2 10 ^3/uL (0-0.8); Eosinophils % (auto) 1.8 % (0.0-7.0); Hematocrit 32.7 % (41.0-53.0); Hemoglobin 10.4 g/dL (13.5-17.5); Lymphocytes # (auto) 0.6 10 ^3/uL (0.4-5.4); Lymphocytes % (auto) 4.8 % (10.0-50.0); Mean Corpuscular Hemoglobin 30.5 pg (28.0-32.0); Mean Corpuscular Hgb Conc. 31.9 g/dL (32.0-36.0); Mean Corpuscular Volume 95.7 fL (80.0-100.0); Monocytes # (auto) 0.5 10 ^3/uL (0-1.3); Monocytes % (auto) 3.4 % (0.0-12.0); Neutrophils # (auto) 12.2 10 ^3/uL (1.6-8.6); Neutrophils % (auto) 89.8 % (37.0-80.0); Red Blood Cells 3.42 10^6/uL (4.5-5.90); Red Cell Distribution Width 17.1 % (11.8-14.3); White Blood Cell 13.5 10^3/uL (4.4-10.8)
[2023-02-20 05:07] LABS: Alanine Aminotransferase 769 U/L (7-40); Albumin 3.3 g/dL (3.2-4.8); Alkaline Phosphatase 104 U/L (46-116); Anion Gap 11 (5-15); Aspartate Aminotransferase 823 U/L (13-40); Bilirubin, Total 0.8 mg/dL (0.2-1.0); Blood Urea Nitrogen 42 mg/dL (9-23); Calcium 8.1 mg/dL (8.7-10.4); Carbon Dioxide 25 mmol/L (20-30); Chloride 103 mmol/L (98-107); Glucose 142 mg/dL (74-106); Total Protein 5.9 g/dL (5.7-8.2)
[2023-02-20 05:11] LABS: Sodium 139 mmol/L (136-145)
[2023-02-20] MEDS: PIPERACILLIN-TAZOB 2.25GM 50 ML IV SCH ×3 (05:44→21:41)
[2023-02-20] MEDS: PROPOFOL 100 ML IV SCH (05:44)
[2023-02-20] MEDS: fentaNYL Drip 2500mCg/250mlNS 250 ML IV SCH (05:46)
[2023-02-20 05:51] LABS: INR 1.32 (0.9-1.15); Prothrombin Time 13.6 sec (9.3-11.8)
[2023-02-20] MEDS: ACCU-CHEK COMFORT CURVE STRIP VI SCH ×4 (06:01→21:41)
[2023-02-20] MEDS: InsuLIN REG 1unit/0.01ml Soln (100units/ml) SC SCH ×4 (06:02→21:44)
[2023-02-20 06:14] LABS: Partial Thromboplastin Time 87.2 SEC (24.5-34.5)
[2023-02-20] MEDS ORDERED: HEPARIN DRIP/D5W 100UNITS/ML 250 ML IV SCH (06:30)
[2023-02-20] MEDS ORDERED: SODIUM CHL 0.9% 1000 ML BAG XX ONE (07:00)
[2023-02-20] MEDS: DOPamine 1600MCG/ML D5W 250 ML IV SCH ×3 (07:25→17:45)
[2023-02-20 07:49] LABS: Base Excess 1.1 mmol/L (-2.0-2.0)
[2023-02-20] MEDS: SEVELAMER 800 MG TAB PO SCH ×3 (08:00→14:50)
[2023-02-20] MEDS: EPINEPHrine HCL 250 ML IV SCH (08:27)
[2023-02-20] MEDS: PANTOPRAZOLE 40 MG/10 ML VIAL INJ IV SCH ×2 (08:36→21:41)
[2023-02-20] MEDS: NOREPINEPHRINE 8 MG/250ML KIT 250 ML IV SCH (08:36)
[2023-02-20] MEDS: MIDAZOLAM DRIP 50 mg/50mL 50 ML IV SCH (08:37)
[2023-02-20] MEDS: PHENYLEPHRINE INJ 80 MG in SODIUM CHL 0.9% 242 ML IV SCH ×2 (08:37→17:30)
[2023-02-20] MEDS ORDERED: IOHEXOL 350 MG/ML 100ML IJ ONE (09:10)
[2023-02-20] MEDS ORDERED: ASPirin 81 mg TAB PO SCH (10:00)
[2023-02-20] MEDS ORDERED: ENOXAPARIN SOD 40 MG/0.4 ML SYRINGE SC SCH (10:00)
[2023-02-20 12:58] LABS: Base Excess 1.8 mmol/L (-2.0-2.0)
[2023-02-20 14:23] LABS: INR 1.33 (0.9-1.15); Prothrombin Time 13.7 sec (9.3-11.8)
[2023-02-20 14:35] LABS: Partial Thromboplastin Time 71.2 SEC (24.5-34.5)
[2023-02-20 18:17] LABS: Hematocrit 33.6 % (41.0-53.0); Hemoglobin 10.6 g/dL (13.5-17.5)
[2023-02-21] VITALS (107 sets, daily range): BP systolic 86–143; BP diastolic 47–74; PULSE 68–90; RESP 10–21; TEMP 96.6–99.5; O2SAT 92–100
[2023-02-21 03:59] LABS: Basophils # (auto) 0 10 ^3/uL (0-0.2); Basophils % (auto) 0.2 % (0.0-2.0); Eosinophils # (auto) 0.4 10 ^3/uL (0-0.8); Eosinophils % (auto) 3.2 % (0.0-7.0); Hemoglobin 10.8 g/dL (13.5-17.5); Lymphocytes # (auto) 0.4 10 ^3/uL (0.4-5.4); Lymphocytes % (auto) 3.2 % (10.0-50.0); Mean Corpuscular Hemoglobin 29.8 pg (28.0-32.0); Mean Corpuscular Hgb Conc. 31.7 g/dL (32.0-36.0); Monocytes # (auto) 0.7 10 ^3/uL (0-1.3); Monocytes % (auto) 5.4 % (0.0-12.0); Neutrophils # (auto) 11.8 10 ^3/uL (1.6-8.6); Red Blood Cells 3.61 10^6/uL (4.5-5.90); Red Cell Distribution Width 17.3 % (11.8-14.3); White Blood Cell 13.4 10^3/uL (4.4-10.8)
[2023-02-21 04:20] LABS: Alanine Aminotransferase 500 U/L (7-40); Albumin 3.3 g/dL (3.2-4.8); Alkaline Phosphatase 114 U/L (46-116); Anion Gap 14 (5-15); Aspartate Aminotransferase 320 U/L (13-40); BUN/Creatinine Ratio 8.7 (10.0-20.0); Calcium 8.5 mg/dL (8.7-10.4); Carbon Dioxide 25 mmol/L (20-30); Chloride 104 mmol/L (98-107); Glucose 110 mg/dL (74-106); Potassium 4.1 mmol/L (3.5-5.1); Sodium 143 mmol/L (136-145)
[2023-02-21 04:21] LABS: Bilirubin, Total 0.6 mg/dL (0.2-1.0); Total Protein 5.9 g/dL (5.7-8.2)
[2023-02-21 04:34] LABS: Blood Urea Nitrogen 59 mg/dL (9-23)
[2023-02-21] MEDS: fentaNYL Drip 2500mCg/250mlNS 250 ML IV SCH (04:58)
[2023-02-21] MEDS: PIPERACILLIN-TAZOB 2.25GM 50 ML IV SCH ×3 (05:42→21:23)
[2023-02-21] MEDS: InsuLIN REG 1unit/0.01ml Soln (100units/ml) SC SCH ×4 (05:45→21:23)
[2023-02-21] MEDS: ACCU-CHEK COMFORT CURVE STRIP VI SCH ×4 (05:45→21:23)
[2023-02-21] MEDS: SEVELAMER 800 MG TAB PO SCH ×3 (06:54→10:30)
[2023-02-21] MEDS ORDERED: SODIUM CHL 0.9% 1000 ML BAG XX ONE (07:00)
[2023-02-21] MEDS: PROPOFOL 100 ML IV SCH (07:11)
[2023-02-21] MEDS: NOREPINEPHRINE 8 MG/250ML KIT 250 ML IV SCH (07:11)
[2023-02-21] MEDS: DOPamine 1600MCG/ML D5W 250 ML IV SCH (07:12)
[2023-02-21] MEDS: PHENYLEPHRINE INJ 80 MG in SODIUM CHL 0.9% 242 ML IV SCH (07:12)
[2023-02-21] MEDS: MIDAZOLAM DRIP 50 mg/50mL 50 ML IV SCH (07:12)
[2023-02-21] MEDS: PANTOPRAZOLE 40 MG/10 ML VIAL INJ IV SCH ×2 (07:18→21:23)
[2023-02-21 07:57] LABS: Base Excess -0.3 mmol/L (-2.0-2.0)
[2023-02-21] MEDS ORDERED: ALBUMIN 25% 100 ML IV ONE (09:32)
[2023-02-21] MEDS: ALBUMIN 25% 100 ML IV PRN (09:44)
[2023-02-21] MEDS ORDERED: MIDODRINE HCL 10 MG TAB ONE ×2 (10:53→17:36)
[2023-02-21] MEDS ORDERED: CATHFLO ACTIVASE (ALTEPLASE) 2 MG VIAL IV ONE (11:00)
[2023-02-21] MEDS: MIDODRINE HCL 10 MG TAB PO SCH ×2 (11:04→17:53)
[2023-02-21] MEDS ORDERED: VANCOMYCIN 1GM/200ML 250 ML IV ONE ×2 (13:03→14:00)
[2023-02-21 13:06] LABS: % Iron Saturation 7.5 % (20-55)
[2023-02-21 15:05] LABS: Body Fluid Polymorphonuclear 14 % (0-25); Body Fluid Red Blood Cells 160 CUMM (0-2000); Body Fluid White Blood Cells 10 CUMM (0-200); Body Fluid pH 8
[2023-02-21] MEDS ORDERED: VANCOMYCIN PER PHARMACY 0 MG IV SCH (20:30)
[2023-02-21] MEDS ORDERED: EPOETIN ALFA-EPBX 4,000 UNIT/ML VIAL SC ONE (21:00)
[2023-02-22] VITALS (97 sets, daily range): BP systolic 90–146; BP diastolic 52–76; PULSE 58–83; RESP 9–22; TEMP 97–98.9; O2SAT 89–100
[2023-02-22 03:48] LABS: Basophils # (auto) 0.1 10 ^3/uL (0-0.2); Basophils % (auto) 0.7 % (0.0-2.0); Eosinophils % (auto) 8.6 % (0.0-7.0); Hematocrit 31.5 % (41.0-53.0); Lymphocytes # (auto) 0.6 10 ^3/uL (0.4-5.4); Lymphocytes % (auto) 5.4 % (10.0-50.0); Mean Corpuscular Hemoglobin 30.1 pg (28.0-32.0); Mean Corpuscular Hgb Conc. 31.8 g/dL (32.0-36.0); Mean Corpuscular Volume 94.6 fL (80.0-100.0); Monocytes # (auto) 0.8 10 ^3/uL (0-1.3); Monocytes % (auto) 6.6 % (0.0-12.0); Neutrophils # (auto) 9.2 10 ^3/uL (1.6-8.6); Neutrophils % (auto) 78.7 % (37.0-80.0); Red Blood Cells 3.33 10^6/uL (4.5-5.90); Red Cell Distribution Width 17.7 % (11.8-14.3); White Blood Cell 11.7 10^3/uL (4.4-10.8)
[2023-02-22 04:06] LABS: Alanine Aminotransferase 336 U/L (7-40); Alkaline Phosphatase 104 U/L (46-116); Anion Gap 14 (5-15); BUN/Creatinine Ratio 7.8 (10.0-20.0); Blood Urea Nitrogen 50 mg/dL (9-23); Calcium 8.8 mg/dL (8.7-10.4); Carbon Dioxide 27 mmol/L (20-30); Chloride 106 mmol/L (98-107); Glucose 163 mg/dL (74-106); Potassium 3.5 mmol/L (3.5-5.1); Sodium 147 mmol/L (136-145)
[2023-02-22 04:07] LABS: Albumin 3.6 g/dL (3.2-4.8); Aspartate Aminotransferase 192 U/L (13-40); Bilirubin, Total 0.7 mg/dL (0.2-1.0); Total Protein 6.3 g/dL (5.7-8.2)
[2023-02-22] MEDS: PIPERACILLIN-TAZOB 2.25GM 50 ML IV SCH ×3 (06:00→21:13)
[2023-02-22] MEDS: ACCU-CHEK COMFORT CURVE STRIP VI SCH ×4 (06:00→21:13)
[2023-02-22] MEDS: MIDODRINE HCL 10 MG TAB PO SCH ×3 (06:00→16:17)
[2023-02-22] MEDS: InsuLIN REG 1unit/0.01ml Soln (100units/ml) SC SCH ×4 (06:35→21:13)
[2023-02-22 06:58] LABS: Base Excess 3.5 mmol/L (-2.0-2.0)
[2023-02-22] MEDS: SEVELAMER 800 MG TAB PO SCH ×3 (07:24→14:30)
[2023-02-22] MEDS: fentaNYL Drip 2500mCg/250mlNS 250 ML IV SCH (07:24)
[2023-02-22] MEDS: NOREPINEPHRINE 8 MG/250ML KIT 250 ML IV SCH (07:25)
[2023-02-22] MEDS ORDERED: ENOXAPARIN SOD 30 MG/0.3 ML SYRINGE ONE (07:27)
[2023-02-22] MEDS: ENOXAPARIN SOD 30 MG/0.3 ML SYRINGE SC SCH (07:34)
[2023-02-22] MEDS: PANTOPRAZOLE 40 MG/10 ML VIAL INJ IV SCH ×2 (07:34→21:13)
[2023-02-22] MEDS: DOPamine 1600MCG/ML D5W 250 ML IV SCH (07:34)
[2023-02-22] MEDS ORDERED: ENOXAPARIN SOD 40 MG/0.4 ML SYRINGE SC SCH (10:00)
[2023-02-22 11:06] LABS: Protein, Body Fluid 2.9 g/dL (.)
[2023-02-22] MEDS: PROPOFOL 100 ML IV SCH (11:21)
[2023-02-22] MEDS: MIDAZOLAM DRIP 50 mg/50mL 50 ML IV SCH (11:21)
[2023-02-22] MEDS: PHENYLEPHRINE INJ 80 MG in SODIUM CHL 0.9% 242 ML IV SCH (13:21)
[2023-02-22] MEDS ORDERED: GLYCOPYRROLATE 0.2 MG/ML 1ML VIAL IV PRN (15:08)
[2023-02-22] MEDS ORDERED: GLYCOPYRROLATE 0.2 MG/ML 1ML VIAL IV ONE (18:00)
[2023-02-23] VITALS (63 sets, daily range): BP systolic 101–154; BP diastolic 62–86; PULSE 70–90; RESP 6–28; TEMP 96.7–99.4; O2SAT 92–100
[2023-02-23 04:17] LABS: Alanine Aminotransferase 269 U/L (7-40); Alkaline Phosphatase 116 U/L (46-116); Anion Gap 17 (5-15); Carbon Dioxide 25 mmol/L (20-30); Chloride 106 mmol/L (98-107); Glucose 139 mg/dL (74-106); Potassium 3.4 mmol/L (3.5-5.1); Sodium 148 mmol/L (136-145)
[2023-02-23 04:18] LABS: Albumin 3.8 g/dL (3.2-4.8); Aspartate Aminotransferase 154 U/L (13-40); Bilirubin, Total 0.6 mg/dL (0.2-1.0); Total Protein 6.7 g/dL (5.7-8.2)
[2023-02-23 04:23] LABS: Basophils # (auto) 0.1 10 ^3/uL (0-0.2); Basophils % (auto) 0.8 % (0.0-2.0); Eosinophils # (auto) 1.5 10 ^3/uL (0-0.8); Eosinophils % (auto) 14.3 % (0.0-7.0); Hematocrit 33.2 % (41.0-53.0); Hemoglobin 10.5 g/dL (13.5-17.5); Lymphocytes # (auto) 0.6 10 ^3/uL (0.4-5.4); Lymphocytes % (auto) 5.9 % (10.0-50.0); Mean Corpuscular Hemoglobin 29.7 pg (28.0-32.0); Mean Corpuscular Hgb Conc. 31.7 g/dL (32.0-36.0); Mean Corpuscular Volume 93.6 fL (80.0-100.0); Monocytes # (auto) 0.6 10 ^3/uL (0-1.3); Neutrophils # (auto) 7.8 10 ^3/uL (1.6-8.6); Red Blood Cells 3.55 10^6/uL (4.5-5.90); Red Cell Distribution Width 17.6 % (11.8-14.3); White Blood Cell 10.7 10^3/uL (4.4-10.8)
[2023-02-23 04:39] LABS: Blood Urea Nitrogen 62 mg/dL (9-23)
[2023-02-23] MEDS: PIPERACILLIN-TAZOB 2.25GM 50 ML IV SCH ×3 (05:31→21:24)
[2023-02-23] MEDS: ACCU-CHEK COMFORT CURVE STRIP VI SCH ×4 (05:33→21:24)
[2023-02-23] MEDS: InsuLIN REG 1unit/0.01ml Soln (100units/ml) SC SCH ×4 (05:33→21:30)
[2023-02-23] MEDS: MIDODRINE HCL 10 MG TAB PO SCH ×3 (05:33→16:52)
[2023-02-23] MEDS: DOPamine 1600MCG/ML D5W 250 ML IV SCH (06:51)
[2023-02-23] MEDS: SEVELAMER 800 MG TAB PO SCH ×3 (06:51→11:07)
[2023-02-23] MEDS: fentaNYL Drip 2500mCg/250mlNS 250 ML IV SCH (06:53)
[2023-02-23] MEDS: NOREPINEPHRINE 8 MG/250ML KIT 250 ML IV SCH (06:53)
[2023-02-23] MEDS: ENOXAPARIN SOD 30 MG/0.3 ML SYRINGE SC SCH (07:38)
[2023-02-23] MEDS: PANTOPRAZOLE 40 MG/10 ML VIAL INJ IV SCH ×2 (07:38→21:24)
[2023-02-23 07:59] LABS: Base Excess 1.1 mmol/L (-2.0-2.0)
[2023-02-23] MEDS: PHENYLEPHRINE INJ 80 MG in SODIUM CHL 0.9% 242 ML IV SCH (08:47)
[2023-02-23] MEDS: MIDAZOLAM DRIP 50 mg/50mL 50 ML IV SCH (08:47)
[2023-02-23] MEDS: PROPOFOL 100 ML IV SCH (08:47)
[2023-02-24] VITALS (68 sets, daily range): BP systolic 80–167; BP diastolic 48–93; PULSE 62–97; RESP 7–26; TEMP 97.3–98; O2SAT 93–100
[2023-02-24 04:04] LABS: Basophils # (auto) 0.1 10 ^3/uL (0-0.2); Basophils % (auto) 0.8 % (0.0-2.0); Eosinophils # (auto) 0.9 10 ^3/uL (0-0.8); Hematocrit 33.9 % (41.0-53.0); Hemoglobin 10.9 g/dL (13.5-17.5); Lymphocytes # (auto) 0.5 10 ^3/uL (0.4-5.4); Lymphocytes % (auto) 6.3 % (10.0-50.0); Mean Corpuscular Hemoglobin 30.2 pg (28.0-32.0); Mean Corpuscular Volume 94.2 fL (80.0-100.0); Monocytes # (auto) 0.7 10 ^3/uL (0-1.3); Monocytes % (auto) 8.1 % (0.0-12.0); Neutrophils # (auto) 6.3 10 ^3/uL (1.6-8.6); Neutrophils % (auto) 73.8 % (37.0-80.0); Red Cell Distribution Width 17.3 % (11.8-14.3); White Blood Cell 8.5 10^3/uL (4.4-10.8)
[2023-02-24 04:19] LABS: Alanine Aminotransferase 205 U/L (7-40); Albumin 3.8 g/dL (3.2-4.8); Alkaline Phosphatase 123 U/L (46-116); Anion Gap 17 (5-15); Aspartate Aminotransferase 120 U/L (13-40); BUN/Creatinine Ratio 8.4 (10.0-20.0); Bilirubin, Total 0.5 mg/dL (0.2-1.0); Calcium 9.1 mg/dL (8.7-10.4); Carbon Dioxide 26 mmol/L (20-30); Chloride 107 mmol/L (98-107); Glucose 188 mg/dL (74-106); Potassium 3.3 mmol/L (3.5-5.1); Sodium 150 mmol/L (136-145); Total Protein 6.9 g/dL (5.7-8.2)
[2023-02-24 04:21] LABS: Blood Urea Nitrogen 78 mg/dL (9-23)
[2023-02-24] MEDS: PIPERACILLIN-TAZOB 2.25GM 50 ML IV SCH ×3 (05:23→22:31)
[2023-02-24] MEDS: MIDODRINE HCL 10 MG TAB PO SCH ×3 (05:25→19:02)
[2023-02-24] MEDS: DOPamine 1600MCG/ML D5W 250 ML IV SCH (05:25)
[2023-02-24] MEDS: InsuLIN REG 1unit/0.01ml Soln (100units/ml) SC SCH ×4 (05:33→22:47)
[2023-02-24] MEDS: ACCU-CHEK COMFORT CURVE STRIP VI SCH (05:42)
[2023-02-24] MEDS ORDERED: SODIUM CHL 0.9% 1000 ML BAG XX ONE (08:45)
[2023-02-24 09:02] LABS: INR 1.06 (0.9-1.15); Partial Thromboplastin Time 29.7 SEC (24.5-34.5); Prothrombin Time 11.1 sec (9.3-11.8)
[2023-02-24 09:12] LABS: Hepatitis B Surface Antigen Negative (Negative)
[2023-02-24 09:32] LABS: Hepatitis A Ab IgM Negative
[2023-02-24 09:33] LABS: Hepatitis B Core IgM Negative
[2023-02-24 09:34] LABS: Hepatitis C Antibody Negative (Negative)
[2023-02-24] MEDS: POTASSIUM CHL 20MEQ/100ML 100 ML IV SCH ×2 (10:00→10:43)
[2023-02-24] MEDS: fentaNYL Drip 2500mCg/250mlNS 250 ML IV SCH (10:30)
[2023-02-24] MEDS: PANTOPRAZOLE 40 MG/10 ML VIAL INJ IV SCH ×2 (10:42→22:31)
[2023-02-24] MEDS: ENOXAPARIN SOD 30 MG/0.3 ML SYRINGE SC SCH (10:42)
[2023-02-24] MEDS: SEVELAMER 800 MG TAB PO SCH ×3 (10:42→19:02)
[2023-02-24] MEDS: NOREPINEPHRINE 8 MG/250ML KIT 250 ML IV SCH (11:00)
[2023-02-24] MEDS: MIDAZOLAM DRIP 50 mg/50mL 50 ML IV SCH (12:45)
[2023-02-24] MEDS: PROPOFOL 100 ML IV SCH (13:15)
[2023-02-24 14:59] LABS: Hematocrit 34.4 % (41.0-53.0); Hemoglobin 10.7 g/dL (13.5-17.5)
[2023-02-24] MEDS: ALBUMIN 25% 100 ML IV PRN (17:02)
[2023-02-24] MEDS ORDERED: ALBUMIN 25% 100 ML IV ONE (17:11)
[2023-02-24] MEDS: PHENYLEPHRINE INJ 80 MG in SODIUM CHL 0.9% 242 ML IV SCH (17:30)
[2023-02-24] MEDS ORDERED: EPOETIN ALFA-EPBX 4,000 UNIT/ML VIAL SC ONE ×2 (21:00)
[2023-02-24] MEDS ORDERED: ETOMIDATE (2MG/ML) 20ML VIAL IV ONE (22:19)
[2023-02-24] MEDS ORDERED: SUCCINYLCHOLINE CHLORIDE 20 MG/ML 10ML VIAL IV ONE (22:20)
[2023-02-25] VITALS (107 sets, daily range): BP systolic 78–155; BP diastolic 49–86; PULSE 52–86; RESP 10–21; TEMP 92.7–99.7; O2SAT 79–100
[2023-02-25] MEDS: DOPamine 1600MCG/ML D5W 250 ML IV SCH ×2 (03:05→08:10)
[2023-02-25 04:33] LABS: Hematocrit 30.7 % (41.0-53.0); Hemoglobin 9.7 g/dL (13.5-17.5); Mean Corpuscular Hemoglobin 29.7 pg (28.0-32.0); Mean Corpuscular Hgb Conc. 31.7 g/dL (32.0-36.0); Mean Corpuscular Volume 93.9 fL (80.0-100.0); Red Blood Cells 3.27 10^6/uL (4.5-5.90); Red Cell Distribution Width 17.4 % (11.8-14.3); White Blood Cell 8.1 10^3/uL (4.4-10.8)
[2023-02-25 04:35] LABS: Band Neutrophils % (manual) 0; Basophils % (manual) 0 (0.0-2.0); Blast Cells 0; Metamyelocytes % 0; Myelocytes % 0; Promyelocytes % 0; Reactive Lymphocytes 0
[2023-02-25 04:37] LABS: INR 1.09 (0.9-1.15); Partial Thromboplastin Time 27.8 SEC (24.5-34.5); Prothrombin Time 11.4 sec (9.3-11.8)
[2023-02-25 04:43] LABS: Alanine Aminotransferase 130 U/L (7-40); Albumin 4.4 g/dL (3.2-4.8); Alkaline Phosphatase 89 U/L (46-116); Anion Gap 15 (5-15); Aspartate Aminotransferase 101 U/L (13-40); Bilirubin, Total 0.7 mg/dL (0.2-1.0); Calcium 9.8 mg/dL (8.5-10.1); Carbon Dioxide 27 mmol/L (20-30); Chloride 111 mmol/L (98-107); Glucose 153 mg/dL (74-106); Potassium 3.6 mmol/L (3.5-5.1); Sodium 153 mmol/L (136-145); Total Protein 7.1 g/dL (5.7-8.2)
[2023-02-25 04:53] LABS: Blood Urea Nitrogen 47 mg/dL (9-23)
[2023-02-25] MEDS: PIPERACILLIN-TAZOB 2.25GM 50 ML IV SCH ×3 (06:00→22:03)
[2023-02-25] MEDS: MIDODRINE HCL 10 MG TAB PO SCH ×3 (06:00→16:43)
[2023-02-25 06:08] LABS: Eosinophils % (manual) 19 (0-7); Lymphocytes % (manual) 12 (10.0-50.0); Monocytes % (manual) 7 (0-12)
[2023-02-25 06:10] LABS: Anisocytosis Slight; Large Platelets FEW; Platelet Estimate Adequa; Target Cell FEW
[2023-02-25] MEDS: InsuLIN REG 1unit/0.01ml Soln (100units/ml) SC SCH ×4 (06:38→22:53)
[2023-02-25] MEDS: SEVELAMER 800 MG TAB PO SCH ×3 (08:00→16:43)
[2023-02-25] MEDS: NOREPINEPHRINE 8 MG/250ML KIT 250 ML IV SCH ×2 (08:13→16:42)
[2023-02-25] MEDS: fentaNYL Drip 2500mCg/250mlNS 250 ML IV SCH (08:13)
[2023-02-25 08:40] LABS: Base Excess 2.7 mmol/L (-2.0-2.0)
[2023-02-25] MEDS: PANTOPRAZOLE 40 MG/10 ML VIAL INJ IV SCH ×2 (12:05→22:02)
[2023-02-25] MEDS: MIDAZOLAM DRIP 50 mg/50mL 50 ML IV SCH (12:45)
[2023-02-25] MEDS: PROPOFOL 100 ML IV SCH (13:15)
[2023-02-25] MEDS ORDERED: D5W 5% 1,000 ML IV SCH (15:30)
[2023-02-25] MEDS ORDERED: VANCOMYCIN 500 MG in D5W 5% 100 ML IV ONE (16:00)
[2023-02-25] MEDS: PHENYLEPHRINE INJ 80 MG in SODIUM CHL 0.9% 242 ML IV SCH (16:43)
[2023-02-26] VITALS (105 sets, daily range): BP systolic 71–178; BP diastolic 43–109; PULSE 60–114; RESP 13–29; TEMP 95.9–101.3; O2SAT 90–100
[2023-02-26 05:27] LABS: Alanine Aminotransferase 104 U/L (7-40); Albumin 4.2 g/dL (3.2-4.8); Alkaline Phosphatase 84 U/L (46-116); Anion Gap 15 (5-15); Aspartate Aminotransferase 81 U/L (13-40); BUN/Creatinine Ratio 6.8 (10.0-20.0); Bilirubin, Total 0.6 mg/dL (0.2-1.0); Calcium 9.5 mg/dL (8.7-10.4); Carbon Dioxide 27 mmol/L (20-30); Chloride 109 mmol/L (98-107); Glucose 226 mg/dL (74-106); Potassium 3.3 mmol/L (3.5-5.1); Sodium 151 mmol/L (136-145)
[2023-02-26 05:39] LABS: Blood Urea Nitrogen 59 mg/dL (9-23)
[2023-02-26] MEDS: PIPERACILLIN-TAZOB 2.25GM 50 ML IV SCH ×3 (05:48→22:03)
[2023-02-26] MEDS: MIDODRINE HCL 10 MG TAB PO SCH ×3 (05:49→17:52)
[2023-02-26] MEDS: InsuLIN REG 1unit/0.01ml Soln (100units/ml) SC SCH ×4 (05:50→22:09)
[2023-02-26 07:05] LABS: Base Excess 3.3 mmol/L (-2.0-2.0)
[2023-02-26] MEDS: SEVELAMER 800 MG TAB PO SCH ×3 (08:00→17:53)
[2023-02-26] MEDS ORDERED: ALBUMIN 25% 100 ML IV ONE (08:30)
[2023-02-26] MEDS ORDERED: POTASSIUM CHL 20MEQ/100ML 100 ML IV ONE (08:30)
[2023-02-26] MEDS: D5W 5% 1,000 ML IV SCH (09:00)
[2023-02-26] MEDS: fentaNYL Drip 2500mCg/250mlNS 250 ML IV SCH (10:30)
[2023-02-26] MEDS: MIDAZOLAM DRIP 50 mg/50mL 50 ML IV SCH (12:45)
[2023-02-26] MEDS: PANTOPRAZOLE 40 MG/10 ML VIAL INJ IV SCH ×2 (12:51→22:03)
[2023-02-26] MEDS: PHENYLEPHRINE INJ 80 MG in SODIUM CHL 0.9% 242 ML IV SCH (17:30)
[2023-02-26] MEDS: DOPamine 1600MCG/ML D5W 250 ML IV SCH (21:13)
[2023-02-27] VITALS (106 sets, daily range): BP systolic 72–193; BP diastolic 36–113; PULSE 65–111; RESP 14–29; TEMP 95.7–100.9; O2SAT 77–100
[2023-02-27] MEDS: MIDAZOLAM DRIP 50 mg/50mL 50 ML IV SCH ×3 (00:45→21:50)
[2023-02-27 01:38] LABS: Alanine Aminotransferase 94 U/L (7-40); Albumin 4.6 g/dL (3.2-4.8); Alkaline Phosphatase 90 U/L (46-116); Anion Gap 13 (5-15); Aspartate Aminotransferase 86 U/L (13-40); BUN/Creatinine Ratio 6.5 (10.0-20.0); Calcium 9.5 mg/dL (8.7-10.4); Carbon Dioxide 24 mmol/L (20-30); Chloride 107 mmol/L (98-107); Glucose 189 mg/dL (74-106); Magnesium 2.6 mg/dL (1.6-2.6); Potassium 3.7 mmol/L (3.5-5.1); Sodium 144 mmol/L (136-145)
[2023-02-27 01:39] LABS: Bilirubin, Total 0.7 mg/dL (0.2-1.0); Total Protein 7.7 g/dL (5.7-8.2)
[2023-02-27 01:41] LABS: Blood Urea Nitrogen 48 mg/dL (9-23)
[2023-02-27 01:42] LABS: Hematocrit 34.6 % (41.0-53.0); Hemoglobin 10.8 g/dL (13.5-17.5); Mean Corpuscular Hemoglobin 29.4 pg (28.0-32.0); Mean Corpuscular Volume 94.8 fL (80.0-100.0); Red Blood Cells 3.66 10^6/uL (4.5-5.90); White Blood Cell 10.2 10^3/uL (4.4-10.8)
[2023-02-27 01:44] LABS: Band Neutrophils % (manual) 0; Basophils % (manual) 0 (0.0-2.0); Blast Cells 0; Metamyelocytes % 0; Myelocytes % 0; Promyelocytes % 0; Reactive Lymphocytes 0
[2023-02-27 02:05] LABS: Eosinophils % (manual) 18 (0-7); Lymphocytes % (manual) 11 (10.0-50.0); Monocytes % (manual) 8 (0-12); Platelet Estimate Decreased
[2023-02-27 02:51] LABS: Base Excess 0.1 mmol/L (-2.0-2.0)
[2023-02-27] MEDS: MIDODRINE HCL 10 MG TAB PO SCH ×3 (06:00→17:04)
[2023-02-27] MEDS: PIPERACILLIN-TAZOB 2.25GM 50 ML IV SCH ×3 (06:12→21:47)
[2023-02-27] MEDS: InsuLIN REG 1unit/0.01ml Soln (100units/ml) SC SCH ×4 (06:24→21:49)
[2023-02-27] MEDS: SEVELAMER 800 MG TAB PO SCH ×3 (07:39→17:04)
[2023-02-27 07:56] LABS: Base Excess -2.2 mmol/L (-2.0-2.0)
[2023-02-27] MEDS: D5W 5% 1,000 ML IV SCH (09:00)
[2023-02-27] MEDS: fentaNYL Drip 2500mCg/250mlNS 250 ML IV SCH (10:30)
[2023-02-27] MEDS: NOREPINEPHRINE 8 MG/250ML KIT 250 ML IV SCH (11:00)
[2023-02-27] MEDS: PANTOPRAZOLE 40 MG/10 ML VIAL INJ IV SCH ×2 (11:12→21:47)
[2023-02-27] MEDS: PHENYLEPHRINE INJ 80 MG in SODIUM CHL 0.9% 242 ML IV SCH (17:03)
[2023-02-27] MEDS: DOPamine 1600MCG/ML D5W 250 ML IV SCH (18:17)
[2023-02-28] VITALS (105 sets, daily range): BP systolic 79–163; BP diastolic 38–94; PULSE 70–100; RESP 15–30; TEMP 97.2–99.7; O2SAT 86–100
[2023-02-28] MEDS: NOREPINEPHRINE 8 MG/250ML KIT 250 ML IV SCH ×2 (03:56→22:20)
[2023-02-28] MEDS: MIDAZOLAM DRIP 50 mg/50mL 50 ML IV SCH ×3 (03:56→19:48)
[2023-02-28 04:14] LABS: Hemoglobin 10.3 g/dL (13.5-17.5); Mean Corpuscular Hemoglobin 29.6 pg (28.0-32.0); Mean Corpuscular Hgb Conc. 31.3 g/dL (32.0-36.0); Mean Corpuscular Volume 94.6 fL (80.0-100.0); Red Cell Distribution Width 17.3 % (11.8-14.3); White Blood Cell 12.1 10^3/uL (4.4-10.8)
[2023-02-28 04:15] LABS: Base Excess -2.9 mmol/L (-2.0-2.0)
[2023-02-28 04:34] LABS: Alanine Aminotransferase 75 U/L (7-40); Albumin 4.2 g/dL (3.2-4.8); Alkaline Phosphatase 95 U/L (46-116); Anion Gap 18 (5-15); Aspartate Aminotransferase 73 U/L (13-40); BUN/Creatinine Ratio 5.9 (10.0-20.0); Blood Urea Nitrogen 57 mg/dL (9-23); Calcium 9.2 mg/dL (8.7-10.4); Carbon Dioxide 21 mmol/L (20-30); Chloride 101 mmol/L (98-107); Glucose 209 mg/dL (74-106); Potassium 4.2 mmol/L (3.5-5.1); Sodium 140 mmol/L (136-145)
[2023-02-28 04:35] LABS: Bilirubin, Total 0.6 mg/dL (0.2-1.0); Total Protein 7.3 g/dL (5.7-8.2)
[2023-02-28 04:36] LABS: Basophils % (manual) 0 (0.0-2.0); Blast Cells 0; Metamyelocytes % 0; Myelocytes % 0; Promyelocytes % 0; Reactive Lymphocytes 0
[2023-02-28 04:53] LABS: Band Neutrophils % (manual) 1; Eosinophils % (manual) 15 (0-7); Lymphocytes % (manual) 8 (10.0-50.0); Monocytes % (manual) 1 (0-12)
[2023-02-28 04:54] LABS: Platelet Estimate Adequate
[2023-02-28] MEDS: MIDODRINE HCL 10 MG TAB PO SCH ×4 (06:00→17:32)
[2023-02-28] MEDS: InsuLIN REG 1unit/0.01ml Soln (100units/ml) SC SCH ×4 (06:04→22:19)
[2023-02-28] MEDS: PIPERACILLIN-TAZOB 2.25GM 50 ML IV SCH ×3 (06:15→22:17)
[2023-02-28] MEDS ORDERED: SODIUM CHL 0.9% 1000 ML BAG XX ONE (07:00)
[2023-02-28] MEDS: SEVELAMER 800 MG TAB PO SCH ×3 (07:42→17:33)
[2023-02-28] MEDS: D5W 5% 1,000 ML IV SCH ×2 (08:54→15:44)
[2023-02-28] MEDS: fentaNYL Drip 2500mCg/250mlNS 250 ML IV SCH (08:54)
[2023-02-28] MEDS: PANTOPRAZOLE 40 MG/10 ML VIAL INJ IV SCH ×2 (10:47→22:16)
[2023-02-28] MEDS: DOPamine 1600MCG/ML D5W 250 ML IV SCH (15:21)
[2023-02-28] MEDS: PHENYLEPHRINE INJ 80 MG in SODIUM CHL 0.9% 242 ML IV SCH (17:16)
[2023-02-28] MEDS ORDERED: EPOETIN ALFA-EPBX 4,000 UNIT/ML VIAL SC ONE (21:00)
[2023-03-01] VITALS (138 sets, daily range): BP systolic 41–185; BP diastolic 18–100; PULSE 68–180; RESP 0–33; TEMP 96.8–99.1; O2SAT 83–100
[2023-03-01] MEDS: NOREPINEPHRINE 8 MG/250ML KIT 250 ML IV SCH ×3 (01:31→20:39)
[2023-03-01] MEDS: MIDAZOLAM DRIP 50 mg/50mL 50 ML IV SCH ×4 (04:10→20:35)
[2023-03-01 04:32] LABS: Hematocrit 32.1 % (41.0-53.0); Hemoglobin 10.1 g/dL (13.5-17.5); Mean Corpuscular Hemoglobin 29.9 pg (28.0-32.0); Mean Corpuscular Hgb Conc. 31.5 g/dL (32.0-36.0); Mean Corpuscular Volume 94.8 fL (80.0-100.0); Red Blood Cells 3.39 10^6/uL (4.5-5.90); Red Cell Distribution Width 17.2 % (11.8-14.3); White Blood Cell 11.7 10^3/uL (4.4-10.8)
[2023-03-01 04:45] LABS: Basophils % (manual) 0 (0.0-2.0); Blast Cells 0; Myelocytes % 0; Promyelocytes % 0; Reactive Lymphocytes 0
[2023-03-01 04:49] LABS: Alanine Aminotransferase 67 U/L (7-40); Albumin 4.2 g/dL (3.2-4.8); Alkaline Phosphatase 95 U/L (46-116); Anion Gap 19 (5-15); Aspartate Aminotransferase 68 U/L (13-40); BUN/Creatinine Ratio 5.4 (10.0-20.0); Blood Urea Nitrogen 62 mg/dL (9-23); Calcium 9.1 mg/dL (8.7-10.4); Carbon Dioxide 20 mmol/L (20-30); Chloride 100 mmol/L (98-107); Glucose 144 mg/dL (74-106); Potassium 4.2 mmol/L (3.5-5.1); Sodium 139 mmol/L (136-145)
[2023-03-01 04:50] LABS: Bilirubin, Total 0.6 mg/dL (0.2-1.0); Total Protein 7.4 g/dL (5.7-8.2)
[2023-03-01] MEDS: MIDODRINE HCL 10 MG TAB PO SCH ×3 (06:00→18:00)
[2023-03-01] MEDS: PIPERACILLIN-TAZOB 2.25GM 50 ML IV SCH ×3 (06:25→23:01)
[2023-03-01] MEDS: InsuLIN REG 1unit/0.01ml Soln (100units/ml) SC SCH ×4 (06:44→23:03)
[2023-03-01] MEDS: SEVELAMER 800 MG TAB PO SCH ×3 (07:06→18:00)
[2023-03-01] MEDS ORDERED: ALBUMIN 25% 100 ML IV ONE (08:06)
[2023-03-01] MEDS: ALBUMIN 25% 100 ML IV PRN (08:06)
[2023-03-01] MEDS: PHENYLEPHRINE INJ 80 MG in SODIUM CHL 0.9% 242 ML IV SCH (08:11)
[2023-03-01 10:07] LABS: Band Neutrophils % (manual) 1; Eosinophils % (manual) 27 (0-7); Lymphocytes % (manual) 14 (10.0-50.0); Metamyelocytes % 1; Monocytes % (manual) 2 (0-12); Platelet Estimate Adequate
[2023-03-01 10:23] LABS: Base Excess -7.3 mmol/L (-2.0-2.0)
[2023-03-01] MEDS: PANTOPRAZOLE 40 MG/10 ML VIAL INJ IV SCH ×2 (10:23→23:01)
[2023-03-01] MEDS ORDERED: fentaNYL Drip 2500mCg/250mlNS 250 ML IV ONE (11:28)
[2023-03-01] MEDS: fentaNYL Drip 2500mCg/250mlNS 250 ML IV SCH (11:30)
[2023-03-01 12:13] LABS: Alanine Aminotransferase 72 U/L (7-40); Alkaline Phosphatase 103 U/L (46-116); Anion Gap 19 (5-15); Aspartate Aminotransferase 79 U/L (13-40); BUN/Creatinine Ratio 3.4 (10.0-20.0); Calcium 9.3 mg/dL (8.5-10.1); Carbon Dioxide 18 mmol/L (20-30); Chloride 100 mmol/L (98-107); Glucose 182 mg/dL (74-106); Potassium 5.4 mmol/L (3.5-5.1); Sodium 137 mmol/L (136-145)
[2023-03-01 12:14] LABS: Albumin 4.7 g/dL (3.2-4.8); Bilirubin, Total 0.5 mg/dL (0.2-1.0); Total Protein 8.2 g/dL (5.7-8.2)
[2023-03-01] MEDS: DOPamine 1600MCG/ML D5W 250 ML IV SCH (12:20)
[2023-03-01 12:24] LABS: Blood Urea Nitrogen 34 mg/dL (9-23)
[2023-03-01] MEDS ORDERED: AMIODARONE 450mg/250ml AE 250 ML IV SCH (12:30)
[2023-03-01 14:04] LABS: Base Excess -8.4 mmol/L (-2.0-2.0)
[2023-03-01] MEDS: AMIODARONE 450mg/250ml AE 250 ML IV SCH ×2 (18:32→22:45)
[2023-03-01] MEDS ORDERED: EPOETIN ALFA-EPBX 4,000 UNIT/ML VIAL SC ONE (21:00)
[2023-03-02] VITALS (108 sets, daily range): BP systolic 90–181; BP diastolic 40–89; PULSE 60–90; RESP 0–30; TEMP 95.9–100.4; O2SAT 95–100
[2023-03-02] MEDS: D5W 5% 1,000 ML IV SCH (00:03)
[2023-03-02] MEDS: MIDAZOLAM DRIP 50 mg/50mL 50 ML IV SCH ×4 (02:17→22:09)
[2023-03-02 03:58] LABS: Hematocrit 30.6 % (41.0-53.0); Hemoglobin 9.6 g/dL (13.5-17.5); Mean Corpuscular Hemoglobin 29.7 pg (28.0-32.0); Mean Corpuscular Hgb Conc. 31.3 g/dL (32.0-36.0); Mean Corpuscular Volume 95.1 fL (80.0-100.0); Red Blood Cells 3.22 10^6/uL (4.5-5.90); Red Cell Distribution Width 17.7 % (11.8-14.3)
[2023-03-02 04:10] LABS: Basophils % (manual) 0 (0.0-2.0); Blast Cells 0; Metamyelocytes % 0; Myelocytes % 0; Promyelocytes % 0; Reactive Lymphocytes 0
[2023-03-02 04:19] LABS: Alanine Aminotransferase 51 U/L (7-40); Alkaline Phosphatase 88 U/L (46-116); Anion Gap 20 (5-15); BUN/Creatinine Ratio 5.1 (10.0-20.0); Calcium 8.7 mg/dL (8.7-10.4); Carbon Dioxide 18 mmol/L (20-30); Chloride 98 mmol/L (98-107); Glucose 98 mg/dL (74-106); Potassium 4.3 mmol/L (3.5-5.1); Sodium 136 mmol/L (136-145)
[2023-03-02 04:20] LABS: Aspartate Aminotransferase 57 U/L (13-40); Bilirubin, Total 0.5 mg/dL (0.2-1.0); Total Protein 6.8 g/dL (5.7-8.2)
[2023-03-02 04:24] LABS: Blood Urea Nitrogen 54 mg/dL (9-23)
[2023-03-02 04:35] LABS: Band Neutrophils % (manual) 1; Eosinophils % (manual) 14 (0-7); Lymphocytes % (manual) 5 (10.0-50.0); Monocytes % (manual) 2 (0-12); Platelet Estimate Adequate
[2023-03-02] MEDS: MIDODRINE HCL 10 MG TAB PO SCH ×3 (06:00→17:30)
[2023-03-02] MEDS: PIPERACILLIN-TAZOB 2.25GM 50 ML IV SCH ×3 (06:37→21:45)
[2023-03-02] MEDS: InsuLIN REG 1unit/0.01ml Soln (100units/ml) SC SCH ×4 (07:00→21:46)
[2023-03-02] MEDS: fentaNYL Drip 2500mCg/250mlNS 250 ML IV SCH (07:45)
[2023-03-02] MEDS: SEVELAMER 800 MG TAB PO SCH ×3 (07:45→17:30)
[2023-03-02 08:02] LABS: Base Excess -6.7 mmol/L (-2.0-2.0)
[2023-03-02] MEDS: DOPamine 1600MCG/ML D5W 250 ML IV SCH (09:09)
[2023-03-02] MEDS: PANTOPRAZOLE 40 MG/10 ML VIAL INJ IV SCH ×2 (10:39→21:45)
[2023-03-02] MEDS: AMIODARONE 450mg/250ml AE 250 ML IV SCH (13:00)
[2023-03-02] MEDS: NOREPINEPHRINE 8 MG/250ML KIT 250 ML IV SCH (14:00)
[2023-03-02] MEDS: PHENYLEPHRINE INJ 80 MG in SODIUM CHL 0.9% 242 ML IV SCH (17:17)
[2023-03-02] MEDS ORDERED: FUROSEMIDE 20 MG/2 ML VIAL IV ONE (20:15)
[2023-03-02] MEDS ORDERED: Nutren 1.0/Fiber 8 ounces GT SCH (20:30)
[2023-03-02] MEDS: Pro-Stat SF 30ml Vanilla GT SCH (22:00)
[2023-03-03] VITALS (107 sets, daily range): BP systolic 83–201; BP diastolic 36–95; PULSE 48–94; RESP 0–31; TEMP 95.9–99.3; O2SAT 30–100
[2023-03-03] MEDS: AMIODARONE 450mg/250ml AE 250 ML IV SCH (04:07)
[2023-03-03 04:09] LABS: Basophils # (auto) 0.1 10 ^3/uL (0-0.2); Basophils % (auto) 0.7 % (0.0-2.0); Eosinophils # (auto) 1.6 10 ^3/uL (0-0.8); Eosinophils % (auto) 10.2 % (0.0-7.0); Hematocrit 29.2 % (41.0-53.0); Hemoglobin 9.2 g/dL (13.5-17.5); Lymphocytes # (auto) 0.8 10 ^3/uL (0.4-5.4); Mean Corpuscular Hemoglobin 29.4 pg (28.0-32.0); Mean Corpuscular Hgb Conc. 31.3 g/dL (32.0-36.0); Mean Corpuscular Volume 93.8 fL (80.0-100.0); Monocytes # (auto) 0.7 10 ^3/uL (0-1.3); Monocytes % (auto) 4.3 % (0.0-12.0); Neutrophils # (auto) 12.3 10 ^3/uL (1.6-8.6); Neutrophils % (auto) 79.8 % (37.0-80.0); Nucleated Red Blood Cells % 0.1 %; Red Blood Cells 3.12 10^6/uL (4.5-5.90); Red Cell Distribution Width 17.5 % (11.8-14.3); White Blood Cell 15.5 10^3/uL (4.4-10.8)
[2023-03-03 04:25] LABS: Alanine Aminotransferase 41 U/L (7-40); Alkaline Phosphatase 92 U/L (46-116); Anion Gap 18 (5-15); Aspartate Aminotransferase 46 U/L (13-40); BUN/Creatinine Ratio 5.4 (10.0-20.0); Blood Urea Nitrogen 62 mg/dL (9-23); Calcium 8.7 mg/dL (8.7-10.4); Carbon Dioxide 17 mmol/L (20-30); Chloride 95 mmol/L (98-107); Glucose 171 mg/dL (74-106); Magnesium 2.3 mg/dL (1.6-2.6); Potassium 4.9 mmol/L (3.5-5.1)
[2023-03-03 04:26] LABS: Bilirubin, Total 0.4 mg/dL (0.2-1.0)
[2023-03-03 04:49] LABS: Sodium 130 mmol/L (136-145)
[2023-03-03 05:01] LABS: CRP High Sensitivity 15.22 mg/dL (<1.0)
[2023-03-03] MEDS: PIPERACILLIN-TAZOB 2.25GM 50 ML IV SCH (06:15)
[2023-03-03] MEDS: MIDAZOLAM DRIP 50 mg/50mL 50 ML IV SCH ×4 (06:15→21:52)
[2023-03-03] MEDS: MIDODRINE HCL 10 MG TAB PO SCH ×3 (06:15→17:51)
[2023-03-03] MEDS: InsuLIN REG 1unit/0.01ml Soln (100units/ml) SC SCH ×4 (06:16→21:57)
[2023-03-03] MEDS: DOPamine 1600MCG/ML D5W 250 ML IV SCH ×2 (06:33→16:54)
[2023-03-03] MEDS ORDERED: Nutren 1.0/Fiber 8 ounces GT SCH (07:00)
[2023-03-03 07:19] LABS: Base Excess -9.1 mmol/L (-2.0-2.0)
[2023-03-03] MEDS: SEVELAMER 800 MG TAB PO SCH ×3 (08:00→17:49)
[2023-03-03] MEDS ORDERED: SODIUM BICARBONATE 50ML VIAL 50 ML in SOD CHL 0.45% 1,000 ML IV SCH (08:30)
[2023-03-03] MEDS: D5W 5% 1,000 ML IV SCH (09:47)
[2023-03-03] MEDS: Pro-Stat SF 30ml Vanilla GT SCH ×2 (09:47→21:53)
[2023-03-03] MEDS ORDERED: FUROSEMIDE 20 MG/2 ML VIAL IV SCH (10:00)
[2023-03-03] MEDS: PANTOPRAZOLE 40 MG/10 ML VIAL INJ IV SCH ×2 (10:00→21:57)
[2023-03-03] MEDS ORDERED: SODIUM BICARBONATE 8.4 % INJ 50ML VIAL IV ONE (12:00)
[2023-03-03] MEDS: VASOPRESSIN 20 UNITS in SODIUM CHL 0.9% 99 ML IV SCH (15:00)
[2023-03-03] MEDS: PHENYLEPHRINE INJ 80 MG in SODIUM CHL 0.9% 242 ML IV SCH (17:30)
[2023-03-03] MEDS: fentaNYL Drip 2500mCg/250mlNS 250 ML IV SCH ×2 (17:50→23:42)
[2023-03-04] VITALS (106 sets, daily range): BP systolic 83–192; BP diastolic 39–93; PULSE 58–102; RESP 0–30; TEMP 96.6–99.7; O2SAT 69–100
[2023-03-04] MEDS: MIDAZOLAM DRIP 50 mg/50mL 50 ML IV SCH ×3 (00:50→19:49)
[2023-03-04] MEDS: VASOPRESSIN 20 UNITS in SODIUM CHL 0.9% 99 ML IV SCH ×2 (02:20→10:14)
[2023-03-04 04:09] LABS: Eosinophils # (auto) 1.5 10 ^3/uL (0-0.8); Hematocrit 26.5 % (41.0-53.0); Hemoglobin 8.4 g/dL (13.5-17.5); Monocytes # (auto) 0.6 10 ^3/uL (0-1.3)
[2023-03-04 04:12] LABS: Basophils # (auto) 0.1 10 ^3/uL (0-0.2); Basophils % (auto) 0.6 % (0.0-2.0); Lymphocytes # (auto) 0.5 10 ^3/uL (0.4-5.4); Lymphocytes % (auto) 4.1 % (10.0-50.0); Mean Corpuscular Hemoglobin 29.5 pg (28.0-32.0); Mean Corpuscular Hgb Conc. 31.6 g/dL (32.0-36.0); Mean Corpuscular Volume 93.3 fL (80.0-100.0); Monocytes % (auto) 4.5 % (0.0-12.0); Neutrophils # (auto) 10.7 10 ^3/uL (1.6-8.6); Neutrophils % (auto) 79.8 % (37.0-80.0); Red Blood Cells 2.84 10^6/uL (4.5-5.90); Red Cell Distribution Width 17.6 % (11.8-14.3); White Blood Cell 13.4 10^3/uL (4.4-10.8)
[2023-03-04 04:18] LABS: Chloride 92 mmol/L (98-107); Potassium 4.4 mmol/L (3.5-5.1); Sodium 131 mmol/L (136-145)
[2023-03-04 04:19] LABS: Anion Gap 20 (5-15); Carbon Dioxide 19 mmol/L (20-30)
[2023-03-04 04:20] LABS: Calcium 8.5 mg/dL (8.5-10.1)
[2023-03-04 04:24] LABS: BUN/Creatinine Ratio 5.9 (10.0-20.0); Blood Urea Nitrogen 70 mg/dL (9-23); Glucose 134 mg/dL (74-106)
[2023-03-04] MEDS: NOREPINEPHRINE 8 MG/250ML KIT 250 ML IV SCH ×2 (05:17→11:00)
[2023-03-04] MEDS: MIDODRINE HCL 10 MG TAB PO SCH ×3 (06:00→17:30)
[2023-03-04] MEDS: AMIODARONE 450mg/250ml AE 250 ML IV SCH ×2 (06:30→21:30)
[2023-03-04] MEDS: fentaNYL Drip 2500mCg/250mlNS 250 ML IV SCH ×2 (06:31→19:26)
[2023-03-04] MEDS ORDERED: ALBUMIN 25% 100 ML IV PRN (06:45)
[2023-03-04] MEDS: InsuLIN REG 1unit/0.01ml Soln (100units/ml) SC SCH ×4 (07:00→22:00)
[2023-03-04] MEDS ORDERED: ALBUMIN 25% 100 ML IV ONE (07:00)
[2023-03-04] MEDS ORDERED: SODIUM CHL 0.9% 1000 ML BAG XX ONE (07:00)
[2023-03-04] MEDS: SEVELAMER 800 MG TAB PO SCH ×3 (08:00→17:30)
[2023-03-04] MEDS: Pro-Stat SF 30ml Vanilla GT SCH ×2 (10:00→22:00)
[2023-03-04] MEDS: PANTOPRAZOLE 40 MG/10 ML VIAL INJ IV SCH (10:39)
[2023-03-04] MEDS ORDERED: VANCOMYCIN 500 MG in D5W 5% 100 ML IV ONE (12:00)
[2023-03-04 12:01] LABS: Base Excess -3.5 mmol/L (-2.0-2.0)
[2023-03-04 12:02] LABS: Base Excess -3.5 mmol/L (-2.0-2.0)
[2023-03-04] MEDS ORDERED: EPINEPHrine HCL 1 MG/10 ML SYRG IV ONE (13:46)
[2023-03-04] MEDS ORDERED: SODIUM BICARBONATE 8.4% INJ 50ML SYRINGE IV ONE (13:46)
[2023-03-04] MEDS ORDERED: ATROPINE SULF 1 MG/10ml SYR IM ONE (13:46)
[2023-03-04] MEDS: D5W 5% 1,000 ML IV SCH (17:30)
[2023-03-04] MEDS: PHENYLEPHRINE INJ 80 MG in SODIUM CHL 0.9% 242 ML IV SCH (17:30)
[2023-03-04] MEDS ORDERED: EPOETIN ALFA-EPBX 10,000 UNIT/1ML VIAL SC ONE (21:00)
[2023-03-04 22:01] LABS: Base Excess -3.5 mmol/L (-2.0-2.0)
[2023-03-04 22:05] LABS: Base Excess -5.1 mmol/L (-2.0-2.0)
[2023-03-05] VITALS (102 sets, daily range): BP systolic 83–195; BP diastolic 32–86; PULSE 60–89; RESP 0–32; TEMP 96.6–100.6; O2SAT 100
[2023-03-05] MEDS ORDERED: PIPERACILLIN-TAZOB 2.25GM 50 ML IV SCH
[2023-03-05] MEDS: DOPamine 1600MCG/ML D5W 250 ML IV SCH ×2 (00:41→21:45)
[2023-03-05] MEDS: VASOPRESSIN 20 UNITS in SODIUM CHL 0.9% 99 ML IV SCH ×3 (03:38→18:02)
[2023-03-05] MEDS: PANTOPRAZOLE 40 MG/10 ML VIAL INJ IV SCH ×3 (03:39→21:36)
[2023-03-05 06:24] LABS: Eosinophils # (auto) 0.1 10 ^3/uL (0-0.8); Hemoglobin 7.6 g/dL (13.5-17.5); Lymphocytes # (auto) 0.1 10 ^3/uL (0.4-5.4); Monocytes # (auto) 0.3 10 ^3/uL (0-1.3)
[2023-03-05 06:28] LABS: Basophils # (auto) 0.1 10 ^3/uL (0-0.2); Basophils % (auto) 0.6 % (0.0-2.0); Hematocrit 23.8 % (41.0-53.0); Lymphocytes % (auto) 1.3 % (10.0-50.0); Mean Corpuscular Hemoglobin 29.8 pg (28.0-32.0); Mean Corpuscular Hgb Conc. 31.8 g/dL (32.0-36.0); Mean Corpuscular Volume 93.5 fL (80.0-100.0); Monocytes % (auto) 3.3 % (0.0-12.0); Neutrophils # (auto) 9.1 10 ^3/uL (1.6-8.6); Neutrophils % (auto) 93.8 % (37.0-80.0); Red Blood Cells 2.54 10^6/uL (4.5-5.90); Red Cell Distribution Width 17.4 % (11.8-14.3); White Blood Cell 9.7 10^3/uL (4.4-10.8)
[2023-03-05 06:37] LABS: Chloride 94 mmol/L (98-107); Potassium 4.2 mmol/L (3.5-5.1); Sodium 131 mmol/L (136-145)
[2023-03-05 06:38] LABS: Anion Gap 14 (5-15); Calcium 8.1 mg/dL (8.5-10.1); Carbon Dioxide 23 mmol/L (20-30)
[2023-03-05 06:43] LABS: BUN/Creatinine Ratio 5.5 (10.0-20.0); Glucose 196 mg/dL (74-106)
[2023-03-05 06:45] LABS: Blood Urea Nitrogen 45 mg/dL (9-23)
[2023-03-05] MEDS: MIDODRINE HCL 10 MG TAB PO SCH ×3 (06:55→18:02)
[2023-03-05] MEDS: InsuLIN REG 1unit/0.01ml Soln (100units/ml) SC SCH ×4 (06:57→21:36)
[2023-03-05] MEDS: SEVELAMER 800 MG TAB PO SCH ×3 (08:00→18:00)
[2023-03-05 08:12] LABS: Base Excess -6.4 mmol/L (-2.0-2.0)
[2023-03-05] MEDS: D5W 5% 1,000 ML IV SCH (09:00)
[2023-03-05] MEDS: Pro-Stat SF 30ml Vanilla GT SCH ×2 (10:00→21:36)
[2023-03-05] MEDS ORDERED: ALBUMIN 25% 100 ML IV ONE ×2 (10:15)
[2023-03-05] MEDS: NOREPINEPHRINE 8 MG/250ML KIT 250 ML IV SCH (11:00)
[2023-03-05] MEDS: AMIODARONE 450mg/250ml AE 250 ML IV SCH (12:30)
[2023-03-05] MEDS: MIDAZOLAM DRIP 50 mg/50mL 50 ML IV SCH (13:55)
[2023-03-05] MEDS: fentaNYL Drip 2500mCg/250mlNS 250 ML IV SCH ×2 (14:01→20:36)
[2023-03-05] MEDS: PHENYLEPHRINE INJ 80 MG in SODIUM CHL 0.9% 242 ML IV SCH (17:30)
[2023-03-06] VITALS (106 sets, daily range): BP systolic 100–191; BP diastolic 40–83; PULSE 67–90; RESP 0–37; TEMP 96.4–99.3; O2SAT 78–100
[2023-03-06] MEDS: fentaNYL Drip 2500mCg/250mlNS 250 ML IV SCH ×3 (03:12→23:09)
[2023-03-06] MEDS: MIDAZOLAM DRIP 50 mg/50mL 50 ML IV SCH ×4 (03:12→22:14)
[2023-03-06] MEDS: AMIODARONE 450mg/250ml AE 250 ML IV SCH (03:13)
[2023-03-06 04:00] LABS: White Blood Cell 9.8 10^3/uL (4.4-10.8)
[2023-03-06 04:03] LABS: Hematocrit 24.2 % (41.0-53.0); Hemoglobin 7.8 g/dL (13.5-17.5); Mean Corpuscular Hemoglobin 29.8 pg (28.0-32.0); Mean Corpuscular Volume 93.1 fL (80.0-100.0); Red Cell Distribution Width 17.9 % (11.8-14.3)
[2023-03-06 04:09] LABS: Basophils % (manual) 0 (0.0-2.0); Blast Cells 0; Metamyelocytes % 0; Myelocytes % 0; Promyelocytes % 0; Reactive Lymphocytes 0
[2023-03-06 04:13] LABS: Alanine Aminotransferase 26 U/L (7-40); Albumin 4.1 g/dL (3.2-4.8); Alkaline Phosphatase 100 U/L (46-116); Anion Gap 13 (5-15); Aspartate Aminotransferase 43 U/L (13-40); BUN/Creatinine Ratio 5.1 (10.0-20.0); Bilirubin, Total 0.4 mg/dL (0.2-1.0); Calcium 8.6 mg/dL (8.7-10.4); Carbon Dioxide 25 mmol/L (20-30); Chloride 94 mmol/L (98-107); Glucose 143 mg/dL (74-106); Potassium 3.2 mmol/L (3.5-5.1); Sodium 132 mmol/L (136-145); Total Protein 6.9 g/dL (5.7-8.2)
[2023-03-06 04:22] LABS: Blood Urea Nitrogen 30 mg/dL (9-23)
[2023-03-06] MEDS: MIDODRINE HCL 10 MG TAB PO SCH ×3 (05:32→18:03)
[2023-03-06] MEDS: NOREPINEPHRINE 8 MG/250ML KIT 250 ML IV SCH (05:40)
[2023-03-06 06:34] LABS: Band Neutrophils % (manual) 1; Eosinophils % (manual) 21 (0-7); Lymphocytes % (manual) 3 (10.0-50.0); Monocytes % (manual) 7 (0-12); Platelet Estimate Adequate
[2023-03-06] MEDS: VASOPRESSIN 20 UNITS in SODIUM CHL 0.9% 99 ML IV SCH ×2 (06:42→17:28)
[2023-03-06] MEDS: InsuLIN REG 1unit/0.01ml Soln (100units/ml) SC SCH ×4 (06:48→22:08)
[2023-03-06] MEDS: PANTOPRAZOLE 40 MG/10 ML VIAL INJ IV SCH ×2 (08:14→22:11)
[2023-03-06] MEDS: SEVELAMER 800 MG TAB PO SCH ×3 (08:14→17:58)
[2023-03-06] MEDS: D5W 5% 1,000 ML IV SCH (08:14)
[2023-03-06] MEDS: Pro-Stat SF 30ml Vanilla GT SCH ×2 (08:15→22:12)
[2023-03-06] MEDS ORDERED: VANCOMYCIN 500 MG in D5W 5% 100 ML IV ONE (11:00)
[2023-03-06] MEDS ORDERED: POTASSIUM CHL 20MEQ/100ML 100 ML IV ONE (11:30)
[2023-03-06] MEDS: Nepro With Carb Steady 1 Liter Bottle GT SCH (13:33)
[2023-03-06 14:31] LABS: Base Excess -1.6 mmol/L (-2.0-2.0)
[2023-03-06] MEDS: PHENYLEPHRINE INJ 80 MG in SODIUM CHL 0.9% 242 ML IV SCH (17:28)
[2023-03-07] VITALS (108 sets, daily range): BP systolic 63–188; BP diastolic 28–82; PULSE 59–99; RESP 0–26; TEMP 96.3–99.3; O2SAT 82–100
[2023-03-07] MEDS: MIDAZOLAM DRIP 50 mg/50mL 50 ML IV SCH ×5 (03:33→22:59)
[2023-03-07 03:56] LABS: White Blood Cell 8.8 10^3/uL (4.4-10.8)
[2023-03-07 03:59] LABS: Hematocrit 23.7 % (41.0-53.0); Hemoglobin 7.6 g/dL (13.5-17.5); Mean Corpuscular Hemoglobin 30.1 pg (28.0-32.0); Mean Corpuscular Hgb Conc. 32.2 g/dL (32.0-36.0); Mean Corpuscular Volume 93.6 fL (80.0-100.0); Red Blood Cells 2.53 10^6/uL (4.5-5.90); Red Cell Distribution Width 17.2 % (11.8-14.3)
[2023-03-07 04:06] LABS: Chloride 94 mmol/L (98-107); Potassium 3.7 mmol/L (3.5-5.1); Sodium 130 mmol/L (136-145)
[2023-03-07 04:07] LABS: Anion Gap 14 (5-15); Calcium 8.8 mg/dL (8.7-10.4); Carbon Dioxide 22 mmol/L (20-30)
[2023-03-07 04:11] LABS: Basophils % (manual) 0 (0.0-2.0); Blast Cells 0; Promyelocytes % 0; Reactive Lymphocytes 0
[2023-03-07 04:12] LABS: Glucose 136 mg/dL (74-106)
[2023-03-07 04:13] LABS: Blood Urea Nitrogen 44 mg/dL (9-23)
[2023-03-07] MEDS: VASOPRESSIN 20 UNITS in SODIUM CHL 0.9% 99 ML IV SCH ×2 (04:56→16:03)
[2023-03-07] MEDS: MIDODRINE HCL 10 MG TAB PO SCH ×3 (06:00→17:31)
[2023-03-07] MEDS: InsuLIN REG 1unit/0.01ml Soln (100units/ml) SC SCH ×4 (06:02→21:32)
[2023-03-07 07:40] LABS: Band Neutrophils % (manual) 12; Eosinophils % (manual) 1 (0-7); Lymphocytes % (manual) 5 (10.0-50.0); Metamyelocytes % 3; Monocytes % (manual) 6 (0-12); Myelocytes % 1; Platelet Estimate Adequate
[2023-03-07] MEDS: fentaNYL Drip 2500mCg/250mlNS 250 ML IV SCH ×2 (08:09→17:10)
[2023-03-07] MEDS: SEVELAMER 800 MG TAB PO SCH ×3 (08:10→17:31)
[2023-03-07 08:25] LABS: Base Excess -4.3 mmol/L (-2.0-2.0)
[2023-03-07] MEDS: PANTOPRAZOLE 40 MG/10 ML VIAL INJ IV SCH ×2 (09:20→21:30)
[2023-03-07] MEDS: Pro-Stat SF 30ml Vanilla GT SCH ×2 (09:20→21:30)
[2023-03-07] MEDS: ALBUMIN 25% 100 ML IV PRN (09:55)
[2023-03-07] MEDS: NOREPINEPHRINE 8 MG/250ML KIT 250 ML IV SCH (11:00)
[2023-03-07] MEDS ORDERED: SODIUM FERR GLUC 62.5MG/5ML 125 MG in SODIUM CHL 0.9% 100 ML IV ONE (16:30)
[2023-03-07] MEDS ORDERED: VANCOMYCIN 500 MG in D5W 5% 100 ML IV ONE (17:00)
[2023-03-07] MEDS: PHENYLEPHRINE INJ 80 MG in SODIUM CHL 0.9% 242 ML IV SCH (17:30)
[2023-03-07] MEDS ORDERED: EPOETIN ALFA-EPBX 4,000 UNIT/ML VIAL SC ONE (21:00)
[2023-03-08] VITALS (99 sets, daily range): BP systolic 81–160; BP diastolic 30–106; PULSE 62–91; RESP 0–26; TEMP 97.5–98.1; O2SAT 97–100
[2023-03-08] MEDS: Nepro With Carb Steady 1 Liter Bottle GT SCH (00:15)
[2023-03-08] MEDS: MIDAZOLAM DRIP 50 mg/50mL 50 ML IV SCH ×4 (02:52→18:29)
[2023-03-08] MEDS: fentaNYL Drip 2500mCg/250mlNS 250 ML IV SCH ×3 (02:57→21:50)
[2023-03-08] MEDS: VASOPRESSIN 20 UNITS in SODIUM CHL 0.9% 99 ML IV SCH ×2 (02:58→14:17)
[2023-03-08 03:52] LABS: Mean Corpuscular Volume 92.9 fL (80.0-100.0); White Blood Cell 7.9 10^3/uL (4.4-10.8)
[2023-03-08 03:55] LABS: Hematocrit 24.5 % (41.0-53.0); Hemoglobin 7.9 g/dL (13.5-17.5); Mean Corpuscular Hgb Conc. 32.3 g/dL (32.0-36.0); Red Blood Cells 2.63 10^6/uL (4.5-5.90); Red Cell Distribution Width 16.8 % (11.8-14.3)
[2023-03-08 04:01] LABS: Band Neutrophils % (manual) 0; Basophils % (manual) 0 (0.0-2.0); Blast Cells 0; Metamyelocytes % 0; Myelocytes % 0; Promyelocytes % 0; Reactive Lymphocytes 0
[2023-03-08 04:36] LABS: Alanine Aminotransferase 26 U/L (7-40); Alkaline Phosphatase 110 U/L (46-116); Anion Gap 13 (5-15); BUN/Creatinine Ratio 6.7 (10.0-20.0); Blood Urea Nitrogen 39 mg/dL (9-23); Calcium 8.8 mg/dL (8.7-10.4); Carbon Dioxide 24 mmol/L (20-30); Chloride 96 mmol/L (98-107); Glucose 200 mg/dL (74-106); Potassium 2.7 mmol/L (3.5-5.1); Sodium 133 mmol/L (136-145)
[2023-03-08 04:37] LABS: Albumin 3.8 g/dL (3.2-4.8); Aspartate Aminotransferase 39 U/L (13-40); Bilirubin, Total 0.3 mg/dL (0.2-1.0); Total Protein 6.3 g/dL (5.7-8.2)
[2023-03-08 04:58] LABS: Eosinophils % (manual) 24 (0-7); Lymphocytes % (manual) 7 (10.0-50.0); Monocytes % (manual) 1 (0-12)
[2023-03-08 04:59] LABS: Platelet Estimate Adequate
[2023-03-08] MEDS: MIDODRINE HCL 10 MG TAB PO SCH ×2 (06:00→12:19)
[2023-03-08] MEDS: InsuLIN REG 1unit/0.01ml Soln (100units/ml) SC SCH ×4 (06:19→21:06)
[2023-03-08] MEDS ORDERED: POTASSIUM CHLORIDE 40 MEQ, LIDOCAINE 1% (LOCAL ANESTH.) 4 ML in SODIUM CHL 0.9% 250 ML IV ONE (07:00)
[2023-03-08] MEDS: SEVELAMER 800 MG TAB PO SCH ×3 (08:49→17:36)
[2023-03-08] MEDS: POTASSIUM CHL 20MEQ/100ML 100 ML IV SCH ×3 (08:51→11:35)
[2023-03-08] MEDS: Pro-Stat SF 30ml Vanilla GT SCH ×2 (09:07→21:02)
[2023-03-08] MEDS: PANTOPRAZOLE 40 MG/10 ML VIAL INJ IV SCH ×2 (09:09→21:02)
[2023-03-08] MEDS: NOREPINEPHRINE 8 MG/250ML KIT 250 ML IV SCH (11:00)
[2023-03-08 13:55] LABS: Base Excess 0.4 mmol/L (-2.0-2.0)
[2023-03-08] MEDS: PHENYLEPHRINE INJ 80 MG in SODIUM CHL 0.9% 242 ML IV SCH (17:30)
[2023-03-08 20:22] LABS: Alanine Aminotransferase 24 U/L (7-40); Albumin 3.6 g/dL (3.2-4.8); Alkaline Phosphatase 97 U/L (46-116); Anion Gap 9 (5-15); Aspartate Aminotransferase 39 U/L (13-40); BUN/Creatinine Ratio 7.7 (10.0-20.0); Bilirubin, Total 0.3 mg/dL (0.2-1.0); Blood Urea Nitrogen 48 mg/dL (9-23); Calcium 8.9 mg/dL (8.7-10.4); Carbon Dioxide 25 mmol/L (20-30); Chloride 98 mmol/L (98-107); Glucose 152 mg/dL (74-106); Potassium 3.9 mmol/L (3.5-5.1); Sodium 132 mmol/L (136-145); Total Protein 6.1 g/dL (5.7-8.2)
[2023-03-09] VITALS (85 sets, daily range): BP systolic 83–174; BP diastolic 25–74; PULSE 65–86; RESP 0–26; TEMP 96–98.2; O2SAT 95–100
[2023-03-09] MEDS: MIDAZOLAM DRIP 50 mg/50mL 50 ML IV SCH ×2 (03:22→07:09)
[2023-03-09 03:54] LABS: Hemoglobin 8.3 g/dL (13.5-17.5)
[2023-03-09 03:56] LABS: Hematocrit 25.3 % (41.0-53.0); Mean Corpuscular Hemoglobin 30.2 pg (28.0-32.0); Mean Corpuscular Hgb Conc. 32.6 g/dL (32.0-36.0); Mean Corpuscular Volume 92.5 fL (80.0-100.0); Red Blood Cells 2.74 10^6/uL (4.5-5.90); Red Cell Distribution Width 17.2 % (11.8-14.3); White Blood Cell 7.1 10^3/uL (4.4-10.8)
[2023-03-09] MEDS: VASOPRESSIN 20 UNITS in SODIUM CHL 0.9% 99 ML IV SCH ×3 (03:59→23:38)
[2023-03-09 04:02] LABS: Band Neutrophils % (manual) 0; Basophils % (manual) 0 (0.0-2.0); Blast Cells 0; Metamyelocytes % 0; Myelocytes % 0; Promyelocytes % 0; Reactive Lymphocytes 0
[2023-03-09 04:09] LABS: Alanine Aminotransferase 24 U/L (7-40); Albumin 3.5 g/dL (3.2-4.8); Alkaline Phosphatase 99 U/L (46-116); Anion Gap 13 (5-15); Aspartate Aminotransferase 38 U/L (13-40); Bilirubin, Total 0.3 mg/dL (0.2-1.0); Calcium 9.2 mg/dL (8.7-10.4); Carbon Dioxide 22 mmol/L (20-30); Chloride 97 mmol/L (98-107); Glucose 148 mg/dL (74-106); Potassium 3.4 mmol/L (3.5-5.1); Sodium 132 mmol/L (136-145); Total Protein 6.1 g/dL (5.7-8.2)
[2023-03-09 04:16] LABS: Blood Urea Nitrogen 58 mg/dL (9-23)
[2023-03-09 04:33] LABS: Eosinophils % (manual) 13 (0-7); Lymphocytes % (manual) 9 (10.0-50.0); Monocytes % (manual) 3 (0-12); Platelet Estimate Adequate
[2023-03-09] MEDS: fentaNYL Drip 2500mCg/250mlNS 250 ML IV SCH ×2 (06:52→15:47)
[2023-03-09] MEDS: InsuLIN REG 1unit/0.01ml Soln (100units/ml) SC SCH ×4 (06:56→22:00)
[2023-03-09] MEDS: ALBUMIN 25% 100 ML IV PRN ×2 (07:42→08:32)
[2023-03-09] MEDS ORDERED: POTASSIUM CHL 20MEQ/100ML 100 ML IV ONE (07:45)
[2023-03-09] MEDS: SEVELAMER 800 MG TAB PO SCH ×3 (08:00→17:42)
[2023-03-09] MEDS: Pro-Stat SF 30ml Vanilla GT SCH ×2 (10:00→22:17)
[2023-03-09] MEDS: PANTOPRAZOLE 40 MG/10 ML VIAL INJ IV SCH ×2 (11:29→22:17)
[2023-03-09] MEDS: NOREPINEPHRINE 8 MG/250ML KIT 250 ML IV SCH (11:30)
[2023-03-09 11:58] LABS: Base Excess 5.2 mmol/L (-2.0-2.0)
[2023-03-09 16:27] LABS: Base Excess 0.7 mmol/L (-2.0-2.0)
[2023-03-09] MEDS: PHENYLEPHRINE INJ 80 MG in SODIUM CHL 0.9% 242 ML IV SCH (17:30)
[2023-03-10] VITALS (100 sets, daily range): BP systolic 108–184; BP diastolic 51–76; PULSE 71–89; RESP 0–26; TEMP 97.7–99.5; O2SAT 97–100
[2023-03-10] MEDS: MIDAZOLAM DRIP 50 mg/50mL 50 ML IV SCH ×3 (00:15→15:08)
[2023-03-10] MEDS: fentaNYL Drip 2500mCg/250mlNS 250 ML IV SCH ×2 (01:55→15:09)
[2023-03-10 04:21] LABS: Hemoglobin 7.6 g/dL (13.5-17.5)
[2023-03-10 04:25] LABS: Hematocrit 23.2 % (41.0-53.0); Mean Corpuscular Hemoglobin 30.4 pg (28.0-32.0); Mean Corpuscular Hgb Conc. 32.8 g/dL (32.0-36.0); Mean Corpuscular Volume 92.9 fL (80.0-100.0); Red Cell Distribution Width 17.5 % (11.8-14.3); White Blood Cell 7.8 10^3/uL (4.4-10.8)
[2023-03-10 04:38] LABS: Alanine Aminotransferase 22 U/L (7-40); Alkaline Phosphatase 161 U/L (46-116); Anion Gap 12 (5-15); BUN/Creatinine Ratio 8.5 (10.0-20.0); Carbon Dioxide 22 mmol/L (20-30); Chloride 101 mmol/L (98-107); Glucose 147 mg/dL (74-106); Magnesium 2.3 mg/dL (1.6-2.6); Potassium 3.8 mmol/L (3.5-5.1); Sodium 135 mmol/L (136-145)
[2023-03-10 04:39] LABS: Aspartate Aminotransferase 47 U/L (13-40); Bilirubin, Total 0.3 mg/dL (0.2-1.0); Total Protein 6.3 g/dL (5.7-8.2)
[2023-03-10 04:43] LABS: Basophils % (manual) 0 (0.0-2.0); Blast Cells 0; Metamyelocytes % 0; Myelocytes % 0; Promyelocytes % 0; Reactive Lymphocytes 0
[2023-03-10 05:00] LABS: Blood Urea Nitrogen 45 mg/dL (9-23)
[2023-03-10 05:24] LABS: CRP High Sensitivity 7.97 mg/dL (<1.0)
[2023-03-10] MEDS: InsuLIN REG 1unit/0.01ml Soln (100units/ml) SC SCH ×4 (06:35→22:00)
[2023-03-10 08:23] LABS: Base Excess 0.7 mmol/L (-2.0-2.0)
[2023-03-10 09:12] LABS: Band Neutrophils % (manual) 1; Lymphocytes % (manual) 10 (10.0-50.0); Monocytes % (manual) 4 (0-12)
[2023-03-10 09:13] LABS: Anisocytosis Slight; Eosinophils % (manual) 14 (0-7); Platelet Estimate Adequate
[2023-03-10] MEDS: SEVELAMER 800 MG TAB PO SCH ×3 (09:50→17:28)
[2023-03-10] MEDS: Pro-Stat SF 30ml Vanilla GT SCH ×2 (09:50→22:00)
[2023-03-10] MEDS: PANTOPRAZOLE 40 MG/10 ML VIAL INJ IV SCH ×2 (09:50→22:19)
[2023-03-10] MEDS ORDERED: CARBAMIDE PEROXIDE 6.5% OTIC(EAR) SOLN 15ML RIGHT EAR ONE (10:45)
[2023-03-10] MEDS: VASOPRESSIN 20 UNITS in SODIUM CHL 0.9% 99 ML IV SCH ×2 (10:45→21:52)
[2023-03-10] MEDS: NOREPINEPHRINE 8 MG/250ML KIT 250 ML IV SCH (11:00)
[2023-03-10] MEDS: PHENYLEPHRINE INJ 80 MG in SODIUM CHL 0.9% 242 ML IV SCH (17:28)
[2023-03-11] VITALS (108 sets, daily range): BP systolic 78–182; BP diastolic 29–70; PULSE 62–96; RESP 0–22; TEMP 97.4–98.2; O2SAT 100
[2023-03-11] MEDS: MIDAZOLAM DRIP 50 mg/50mL 50 ML IV SCH ×2 (03:31→17:05)
[2023-03-11 04:09] LABS: White Blood Cell 6.8 10^3/uL (4.4-10.8)
[2023-03-11 04:12] LABS: Hematocrit 23.5 % (41.0-53.0); Hemoglobin 7.5 g/dL (13.5-17.5); Mean Corpuscular Hemoglobin 29.7 pg (28.0-32.0); Mean Corpuscular Hgb Conc. 32.1 g/dL (32.0-36.0); Mean Corpuscular Volume 92.7 fL (80.0-100.0); Red Blood Cells 2.54 10^6/uL (4.5-5.90); Red Cell Distribution Width 17.7 % (11.8-14.3)
[2023-03-11 04:35] LABS: Alanine Aminotransferase 20 U/L (7-40); Albumin 3.7 g/dL (3.2-4.8); Alkaline Phosphatase 145 U/L (46-116); Anion Gap 14 (5-15); Aspartate Aminotransferase 51 U/L (13-40); BUN/Creatinine Ratio 8.6 (10.0-20.0); Bilirubin, Total 0.4 mg/dL (0.2-1.0); Blood Urea Nitrogen 54 mg/dL (9-23); Calcium 8.9 mg/dL (8.7-10.4); Carbon Dioxide 20 mmol/L (20-30); Chloride 101 mmol/L (98-107); Glucose 101 mg/dL (74-106); Sodium 135 mmol/L (136-145); Total Protein 6.1 g/dL (5.7-8.2)
[2023-03-11 04:54] LABS: Band Neutrophils % (manual) 0; Basophils % (manual) 0 (0.0-2.0); Blast Cells 0; Metamyelocytes % 0; Myelocytes % 0; Promyelocytes % 0; Reactive Lymphocytes 0
[2023-03-11] MEDS: InsuLIN REG 1unit/0.01ml Soln (100units/ml) SC SCH ×4 (07:00→22:03)
[2023-03-11 07:04] LABS: Base Excess 0.7 mmol/L (-2.0-2.0)
[2023-03-11] MEDS: SEVELAMER 800 MG TAB PO SCH ×4 (08:00→18:00)
[2023-03-11] MEDS: VASOPRESSIN 20 UNITS in SODIUM CHL 0.9% 99 ML IV SCH ×2 (08:59→20:06)
[2023-03-11 09:44] LABS: Eosinophils % (manual) 29 (0-7); Lymphocytes % (manual) 3 (10.0-50.0); Monocytes % (manual) 3 (0-12)
[2023-03-11 09:45] LABS: Platelet Estimate Adequate
[2023-03-11] MEDS: PANTOPRAZOLE 40 MG/10 ML VIAL INJ IV SCH ×2 (10:02→22:04)
[2023-03-11] MEDS: Pro-Stat SF 30ml Vanilla GT SCH ×2 (10:03→22:07)
[2023-03-11] MEDS: NOREPINEPHRINE 8 MG/250ML KIT 250 ML IV SCH (17:07)
[2023-03-11] MEDS: PHENYLEPHRINE INJ 80 MG in SODIUM CHL 0.9% 242 ML IV SCH (17:30)
[2023-03-11] MEDS ORDERED: SODIUM CHL 0.9% 1000 ML BAG XX ONE (18:15)
[2023-03-11] MEDS: fentaNYL Drip 2500mCg/250mlNS 250 ML IV SCH ×2 (19:00→23:30)
[2023-03-11] MEDS ORDERED: EPOETIN ALFA-EPBX 10,000 UNIT/1ML VIAL SC ONE (21:00)
[2023-03-11] MEDS: ACCU-CHEK COMFORT CURVE STRIP VI SCH (22:09)
[2023-03-12] VITALS (112 sets, daily range): BP systolic 86–183; BP diastolic 22–88; PULSE 65–86; RESP 9–25; TEMP 97–98.9; O2SAT 99–100
[2023-03-12] MEDS: NOREPINEPHRINE 8 MG/250ML KIT 250 ML IV SCH (00:23)
[2023-03-12 05:07] LABS: Hematocrit 22.4 % (41.0-53.0)
[2023-03-12 05:09] LABS: Hemoglobin 7.1 g/dL (13.5-17.5); Mean Corpuscular Hemoglobin 29.6 pg (28.0-32.0); Mean Corpuscular Hgb Conc. 31.8 g/dL (32.0-36.0); Red Blood Cells 2.41 10^6/uL (4.5-5.90); Red Cell Distribution Width 17.9 % (11.8-14.3); White Blood Cell 6.4 10^3/uL (4.4-10.8)
[2023-03-12 05:15] LABS: Basophils % (manual) 0 (0.0-2.0); Blast Cells 0; Metamyelocytes % 0; Myelocytes % 0; Promyelocytes % 0; Reactive Lymphocytes 0
[2023-03-12 05:29] LABS: Alanine Aminotransferase 21 U/L (7-40); Albumin 3.7 g/dL (3.2-4.8); Alkaline Phosphatase 140 U/L (46-116); Anion Gap 13 (5-15); Aspartate Aminotransferase 51 U/L (13-40); BUN/Creatinine Ratio 10.6 (10.0-20.0); Bilirubin, Total 0.3 mg/dL (0.2-1.0); Blood Urea Nitrogen 63 mg/dL (9-23); Calcium 8.8 mg/dL (8.7-10.4); Carbon Dioxide 21 mmol/L (20-30); Chloride 103 mmol/L (98-107); Glucose 134 mg/dL (74-106); Potassium 4.1 mmol/L (3.5-5.1); Sodium 137 mmol/L (136-145); Total Protein 6.3 g/dL (5.7-8.2)
[2023-03-12] MEDS: ACCU-CHEK COMFORT CURVE STRIP VI SCH ×4 (06:39→22:09)
[2023-03-12] MEDS: InsuLIN REG 1unit/0.01ml Soln (100units/ml) SC SCH ×4 (06:40→22:13)
[2023-03-12 06:59] LABS: Band Neutrophils % (manual) 2; Eosinophils % (manual) 22 (0-7); Lymphocytes % (manual) 10 (10.0-50.0); Monocytes % (manual) 7 (0-12); Platelet Estimate Adequate
[2023-03-12] MEDS ORDERED: SODIUM CHL 0.9% 1000 ML BAG XX ONE (07:00)
[2023-03-12] MEDS: VASOPRESSIN 20 UNITS in SODIUM CHL 0.9% 99 ML IV SCH ×2 (07:13→20:32)
[2023-03-12 07:15] LABS: Base Excess 2.1 mmol/L (-2.0-2.0)
[2023-03-12] MEDS: SEVELAMER 800 MG TAB PO SCH ×3 (07:58→18:00)
[2023-03-12] MEDS: PANTOPRAZOLE 40 MG/10 ML VIAL INJ IV SCH ×2 (09:42→22:02)
[2023-03-12] MEDS: Pro-Stat SF 30ml Vanilla GT SCH ×2 (09:43→22:04)
[2023-03-12] MEDS ORDERED: ALBUTEROL SULF 2.5 MG/0.5ML(0.5%) NEB SOLN NEB PRN (11:30)
[2023-03-12] MEDS: PHENYLEPHRINE INJ 80 MG in SODIUM CHL 0.9% 242 ML IV SCH (20:32)
[2023-03-12] MEDS ORDERED: EPOETIN ALFA-EPBX 10,000 UNIT/1ML VIAL SC ONE ×2 (21:00)
[2023-03-13] VITALS (113 sets, daily range): BP systolic 77–158; BP diastolic 18–61; PULSE 62–81; RESP 0–22; TEMP 97.8–99.1; O2SAT 95–100
[2023-03-13 03:54] LABS: Hemoglobin 7.1 g/dL (13.5-17.5)
[2023-03-13 03:58] LABS: Mean Corpuscular Hemoglobin 29.5 pg (28.0-32.0); Mean Corpuscular Hgb Conc. 32.2 g/dL (32.0-36.0); Mean Corpuscular Volume 91.6 fL (80.0-100.0); Red Cell Distribution Width 17.6 % (11.8-14.3); White Blood Cell 6.3 10^3/uL (4.4-10.8)
[2023-03-13 04:01] LABS: Basophils % (manual) 0 (0.0-2.0); Blast Cells 0; Metamyelocytes % 0; Myelocytes % 0; Promyelocytes % 0; Reactive Lymphocytes 0
[2023-03-13 04:06] LABS: Anion Gap 12 (5-15); Calcium 9.8 mg/dL (8.7-10.4); Carbon Dioxide 27 mmol/L (20-30); Chloride 101 mmol/L (98-107); Potassium 3.3 mmol/L (3.5-5.1); Sodium 140 mmol/L (136-145)
[2023-03-13 04:12] LABS: BUN/Creatinine Ratio 10.4 (10.0-20.0); Glucose 125 mg/dL (74-106)
[2023-03-13 04:19] LABS: Blood Urea Nitrogen 47 mg/dL (9-23)
[2023-03-13] MEDS: VASOPRESSIN 20 UNITS in SODIUM CHL 0.9% 99 ML IV SCH ×2 (05:27→16:14)
[2023-03-13] MEDS: ACCU-CHEK COMFORT CURVE STRIP VI SCH ×4 (06:38→21:39)
[2023-03-13] MEDS: InsuLIN REG 1unit/0.01ml Soln (100units/ml) SC SCH ×4 (06:50→21:39)
[2023-03-13 07:03] LABS: Band Neutrophils % (manual) 2; Eosinophils % (manual) 19 (0-7); Lymphocytes % (manual) 5 (10.0-50.0); Monocytes % (manual) 8 (0-12)
[2023-03-13 07:04] LABS: Anisocytosis Slight; Large Platelets FEW; Platelet Estimate Decreased; Stomatocytes Few; Target Cell FEW
[2023-03-13 07:17] LABS: Base Excess 2.5 mmol/L (-2.0-2.0)
[2023-03-13] MEDS: SEVELAMER 800 MG TAB PO SCH ×3 (08:00→17:52)
[2023-03-13] MEDS: Pro-Stat SF 30ml Vanilla GT SCH ×2 (10:00→21:40)
[2023-03-13] MEDS ORDERED: POTASSIUM CHL 20MEQ/100ML 100 ML IV ONE (10:15)
[2023-03-13] MEDS: PANTOPRAZOLE 40 MG/10 ML VIAL INJ IV SCH ×2 (10:16→21:39)
[2023-03-13] MEDS: NOREPINEPHRINE 8 MG/250ML KIT 250 ML IV SCH (11:00)
[2023-03-13] MEDS: MIDAZOLAM DRIP 50 mg/50mL 50 ML IV SCH (12:45)
[2023-03-13] MEDS: fentaNYL Drip 2500mCg/250mlNS 250 ML IV SCH (14:45)
[2023-03-13] MEDS: Nepro With Carb Steady 1 Liter Bottle GT SCH (16:19)
[2023-03-13] MEDS: PHENYLEPHRINE INJ 80 MG in SODIUM CHL 0.9% 242 ML IV SCH (17:30)
[2023-03-14] VITALS (112 sets, daily range): BP systolic 59–183; BP diastolic 10–97; PULSE 65–109; RESP 13–30; TEMP 97.2–98.4; O2SAT 86–100
[2023-03-14] MEDS: VASOPRESSIN 20 UNITS in SODIUM CHL 0.9% 99 ML IV SCH ×2 (03:41→14:48)
[2023-03-14 04:16] LABS: Hematocrit 24.6 % (41.0-53.0); Hemoglobin 7.8 g/dL (13.5-17.5); Mean Corpuscular Hemoglobin 29.1 pg (28.0-32.0); Mean Corpuscular Hgb Conc. 31.9 g/dL (32.0-36.0); Mean Corpuscular Volume 91.1 fL (80.0-100.0); Red Blood Cells 2.69 10^6/uL (4.5-5.90); Red Cell Distribution Width 18.1 % (11.8-14.3); White Blood Cell 6.8 10^3/uL (4.4-10.8)
[2023-03-14 04:22] LABS: INR 1.08 (0.9-1.15); Partial Thromboplastin Time 31.5 SEC (24.5-34.5); Prothrombin Time 11.3 sec (9.3-11.8)
[2023-03-14 04:29] LABS: % Iron Saturation 13.7 % (20-55)
[2023-03-14 04:32] LABS: Basophils % (manual) 0 (0.0-2.0); Blast Cells 0; Metamyelocytes % 0; Myelocytes % 0; Promyelocytes % 0; Reactive Lymphocytes 0
[2023-03-14 04:33] LABS: Alanine Aminotransferase 30 U/L (7-40); Albumin 4.5 g/dL (3.2-4.8); Alkaline Phosphatase 165 U/L (46-116); Anion Gap 13 (5-15); Aspartate Aminotransferase 70 U/L (13-40); BUN/Creatinine Ratio 10.3 (10.0-20.0); Bilirubin, Total 0.5 mg/dL (0.2-1.0); Carbon Dioxide 25 mmol/L (20-30); Chloride 103 mmol/L (98-107); Glucose 134 mg/dL (74-106); Potassium 3.4 mmol/L (3.5-5.1); Sodium 141 mmol/L (136-145); Total Protein 7.4 g/dL (5.7-8.2)
[2023-03-14 04:40] LABS: Blood Urea Nitrogen 60 mg/dL (9-23)
[2023-03-14] MEDS: InsuLIN REG 1unit/0.01ml Soln (100units/ml) SC SCH ×3 (05:38→20:31)
[2023-03-14] MEDS: ACCU-CHEK COMFORT CURVE STRIP VI SCH ×4 (05:42→20:25)
[2023-03-14 06:47] LABS: Anisocytosis Slight; Band Neutrophils % (manual) 1; Eosinophils % (manual) 29 (0-7); Lymphocytes % (manual) 16 (10.0-50.0); Monocytes % (manual) 8 (0-12); Platelet Estimate Adequate; Stomatocytes Few; Target Cell FEW
[2023-03-14] MEDS ORDERED: SODIUM CHL 0.9% 1000 ML BAG XX ONE (07:00)
[2023-03-14] MEDS: SEVELAMER 800 MG TAB PO SCH ×3 (08:00→18:00)
[2023-03-14] MEDS: Pro-Stat SF 30ml Vanilla GT SCH ×2 (10:00→20:47)
[2023-03-14] MEDS ORDERED: DEXTROSE (50%) 50ML SYRG IV PRN (10:30)
[2023-03-14] MEDS: NOREPINEPHRINE 8 MG/250ML KIT 250 ML IV SCH (11:57)
[2023-03-14] MEDS ORDERED: InsuLIN REG 1unit/0.01ml Soln (100units/ml) SC SCH (12:00)
[2023-03-14] MEDS: MIDAZOLAM DRIP 50 mg/50mL 50 ML IV SCH (12:45)
[2023-03-14 13:24] LABS: Base Excess 0.1 mmol/L (-2.0-2.0)
[2023-03-14 13:33] LABS: Urine Bacteria FEW /hpf (None Seen); Urine Blood 3+ /uL (Negative); Urine Clarity HAZY (Clear); Urine Color Yellow (Yellow); Urine Hyaline Cast MANY /lpf (0 - 2); Urine Mucus FEW (None Seen); Urine Protein, UAD 3+ (Negative); Urine Specific Gravity 1.016 (1.001-1.035); Urine Urobilinogen Normal (Negative); Urine WBC 37 /hpf (0 - 3); Urine pH 7.5 (5.0-8.0)
[2023-03-14 14:09] LABS: Alanine Aminotransferase 39 U/L (7-40); Albumin 4.8 g/dL (3.2-4.8); Alkaline Phosphatase 197 U/L (46-116); Amylase 114 U/L (30-118); Anion Gap 13 (5-15); Aspartate Aminotransferase 91 U/L (13-40); BUN/Creatinine Ratio 9.1 (10.0-20.0); Bilirubin, Direct 0.2 mg/dL (<0.3); Bilirubin, Total 0.5 mg/dL (0.2-1.0); Carbon Dioxide 23 mmol/L (20-30); Chloride 104 mmol/L (98-107); Glucose 206 mg/dL (74-106); Phosphorus 3.1 mg/dL (2.4-5.1); Potassium 3.9 mmol/L (3.5-5.1); Sodium 140 mmol/L (136-145); Total Protein 7.5 g/dL (5.7-8.2)
[2023-03-14 14:15] LABS: INR 1.09 (0.9-1.15); Partial Thromboplastin Time 34.9 SEC (24.5-34.5); Prothrombin Time 11.4 sec (9.3-11.8)
[2023-03-14 14:27] LABS: Blood Urea Nitrogen 36 mg/dL (9-23)
[2023-03-14] MEDS: fentaNYL Drip 2500mCg/250mlNS 250 ML IV SCH (14:45)
[2023-03-14 15:04] LABS: Basophils # (auto) 0.1 10 ^3/uL (0-0.2); Basophils % (auto) 0.9 % (0.0-2.0); Eosinophils # (auto) 0.9 10 ^3/uL (0-0.8); Eosinophils % (auto) 10.7 % (0.0-7.0); Hematocrit 28.4 % (41.0-53.0); Hemoglobin 8.8 g/dL (13.5-17.5); Lymphocytes # (auto) 0.6 10 ^3/uL (0.4-5.4); Lymphocytes % (auto) 7.5 % (10.0-50.0); Mean Corpuscular Hgb Conc. 30.8 g/dL (32.0-36.0); Mean Corpuscular Volume 94.2 fL (80.0-100.0); Monocytes # (auto) 0.5 10 ^3/uL (0-1.3); Monocytes % (auto) 6.8 % (0.0-12.0); Neutrophils # (auto) 5.9 10 ^3/uL (1.6-8.6); Neutrophils % (auto) 74.1 % (37.0-80.0); Nucleated Red Blood Cells % 0.1 %; Red Blood Cells 3.02 10^6/uL (4.5-5.90); Red Cell Distribution Width 18.1 % (11.8-14.3)
[2023-03-14 15:16] LABS: Lipase 82 U/L (12-53); Magnesium 2.4 mg/dL (1.6-2.6)
[2023-03-14] MEDS: PANTOPRAZOLE 40 MG/10 ML VIAL INJ IV SCH ×2 (15:48→21:11)
[2023-03-14] MEDS: PHENYLEPHRINE INJ 80 MG in SODIUM CHL 0.9% 242 ML IV SCH (17:30)
[2023-03-14 18:17] LABS: Base Excess 1.6 mmol/L (-2.0-2.0)
[2023-03-14 20:31] LABS: Basophils # (auto) 0.1 10 ^3/uL (0-0.2); Basophils % (auto) 1.6 % (0.0-2.0); Eosinophils # (auto) 1.6 10 ^3/uL (0-0.8); Hematocrit 28.3 % (41.0-53.0); Hemoglobin 8.8 g/dL (13.5-17.5); Lymphocytes % (auto) 13.9 % (10.0-50.0); Mean Corpuscular Hemoglobin 28.7 pg (28.0-32.0); Mean Corpuscular Hgb Conc. 31.3 g/dL (32.0-36.0); Mean Corpuscular Volume 91.8 fL (80.0-100.0); Monocytes # (auto) 0.5 10 ^3/uL (0-1.3); Monocytes % (auto) 7.2 % (0.0-12.0); Neutrophils # (auto) 3.7 10 ^3/uL (1.6-8.6); Neutrophils % (auto) 54.3 % (37.0-80.0); Nucleated Red Blood Cells % 0.1 %; Red Blood Cells 3.08 10^6/uL (4.5-5.90); White Blood Cell 6.9 10^3/uL (4.4-10.8)
[2023-03-14 20:44] LABS: Alanine Aminotransferase 39 U/L (7-40); Alkaline Phosphatase 199 U/L (46-116); Amylase 118 U/L (30-118); Anion Gap 12 (5-15); BUN/Creatinine Ratio 9.1 (10.0-20.0); Blood Urea Nitrogen 39 mg/dL (9-23); Calcium 9.9 mg/dL (8.7-10.4); Carbon Dioxide 26 mmol/L (20-30); Chloride 103 mmol/L (98-107); Glucose 151 mg/dL (74-106); Lipase 79 U/L (12-53); Magnesium 2.5 mg/dL (1.6-2.6); Phosphorus 3.2 mg/dL (2.4-5.1); Potassium 3.6 mmol/L (3.5-5.1); Sodium 141 mmol/L (136-145)
[2023-03-14 20:45] LABS: Bilirubin, Total 0.4 mg/dL (0.2-1.0); Total Protein 8.3 g/dL (5.7-8.2)
[2023-03-14 21:00] LABS: INR 1.06 (0.9-1.15); Partial Thromboplastin Time 22.7 SEC (24.5-34.5); Prothrombin Time 11.1 sec (9.3-11.8)
[2023-03-14] MEDS ORDERED: EPOETIN ALFA-EPBX 10,000 UNIT/1ML VIAL SC ONE (21:00)
[2023-03-14 21:20] LABS: Aspartate Aminotransferase 85 U/L (13-40); Bilirubin, Direct 0.2 mg/dL (<0.3)
[2023-03-15] VITALS (112 sets, daily range): BP systolic 55–180; BP diastolic 17–84; PULSE 67–86; RESP 3–21; TEMP 96.4–98.1; O2SAT 100
[2023-03-15 00:06] LABS: Base Excess 1.6 mmol/L (-2.0-2.0)
[2023-03-15] MEDS: ACCU-CHEK COMFORT CURVE STRIP VI SCH ×6 (00:08→20:20)
[2023-03-15] MEDS: VASOPRESSIN 20 UNITS in SODIUM CHL 0.9% 99 ML IV SCH ×2 (00:09→13:02)
[2023-03-15 00:49] LABS: Mean Corpuscular Volume 91.4 fL (80.0-100.0)
[2023-03-15 00:51] LABS: Hematocrit 25.4 % (41.0-53.0); Mean Corpuscular Hemoglobin 28.7 pg (28.0-32.0); Mean Corpuscular Hgb Conc. 31.4 g/dL (32.0-36.0); Red Blood Cells 2.78 10^6/uL (4.5-5.90); Red Cell Distribution Width 18.1 % (11.8-14.3); White Blood Cell 6.3 10^3/uL (4.4-10.8)
[2023-03-15 00:58] LABS: Band Neutrophils % (manual) 0; Basophils % (manual) 0 (0.0-2.0); Blast Cells 0; Metamyelocytes % 0; Myelocytes % 0; Promyelocytes % 0; Reactive Lymphocytes 0
[2023-03-15 01:05] LABS: Alanine Aminotransferase 35 U/L (7-40); Alkaline Phosphatase 186 U/L (46-116); Amylase 113 U/L (30-118); Anion Gap 13 (5-15); Aspartate Aminotransferase 71 U/L (13-40); BUN/Creatinine Ratio 8.9 (10.0-20.0); Blood Urea Nitrogen 40 mg/dL (9-23); Calcium 9.7 mg/dL (8.7-10.4); Carbon Dioxide 24 mmol/L (20-30); Chloride 104 mmol/L (98-107); Glucose 124 mg/dL (74-106); INR 1.08 (0.9-1.15); Lipase 79 U/L (12-53); Magnesium 2.5 mg/dL (1.6-2.6); Partial Thromboplastin Time 31.4 SEC (24.5-34.5); Potassium 3.5 mmol/L (3.5-5.1); Prothrombin Time 11.3 sec (9.3-11.8); Sodium 141 mmol/L (136-145); Total Protein 7.6 g/dL (5.7-8.2)
[2023-03-15 01:06] LABS: Albumin 4.5 g/dL (3.2-4.8); Bilirubin, Total 0.4 mg/dL (0.2-1.0); Phosphorus 3.1 mg/dL (2.4-5.1)
[2023-03-15 01:26] LABS: Eosinophils % (manual) 25 (0-7); Lymphocytes % (manual) 13 (10.0-50.0); Monocytes % (manual) 7 (0-12); Platelet Estimate Adequate
[2023-03-15 02:12] LABS: Bilirubin, Direct 0.2 mg/dL (<0.3)
[2023-03-15] MEDS: InsuLIN REG 1unit/0.01ml Soln (100units/ml) SC SCH ×6 (03:36→20:20)
[2023-03-15 06:47] LABS: Mean Corpuscular Hemoglobin 29.3 pg (28.0-32.0)
[2023-03-15 06:50] LABS: Hematocrit 24.7 % (41.0-53.0); Hemoglobin 7.9 g/dL (13.5-17.5); Mean Corpuscular Volume 91.6 fL (80.0-100.0); Red Cell Distribution Width 17.7 % (11.8-14.3); White Blood Cell 7.1 10^3/uL (4.4-10.8)
[2023-03-15 06:53] LABS: Band Neutrophils % (manual) 0; Basophils % (manual) 0 (0.0-2.0); Blast Cells 0; Metamyelocytes % 0; Myelocytes % 0; Promyelocytes % 0; Reactive Lymphocytes 0
[2023-03-15 07:01] LABS: INR 1.1 (0.9-1.15); Partial Thromboplastin Time 31.7 SEC (24.5-34.5); Prothrombin Time 11.5 sec (9.3-11.8)
[2023-03-15 07:05] LABS: Alanine Aminotransferase 31 U/L (7-40); Albumin 4.5 g/dL (3.2-4.8); Alkaline Phosphatase 179 U/L (46-116); Amylase 113 U/L (30-118); Anion Gap 13 (5-15); Aspartate Aminotransferase 70 U/L (13-40); BUN/Creatinine Ratio 8.6 (10.0-20.0); Bilirubin, Direct 0.2 mg/dL (<0.3); Blood Urea Nitrogen 41 mg/dL (9-23); Calcium 10.1 mg/dL (8.5-10.1); Carbon Dioxide 22 mmol/L (20-30); Chloride 106 mmol/L (98-107); Cholesterol 123 mg/dL (< 200); Glucose 134 mg/dL (74-106); HDL Cholesterol 28 mg/dL (40-59); LDL Cholesterol 77 mg/dL (< 100); Phosphorus 3.4 mg/dL (2.4-5.1); Potassium 3.5 mmol/L (3.5-5.1); Sodium 141 mmol/L (136-145); Triglycerides 118 mg/dL (< 150)
[2023-03-15 07:06] LABS: Bilirubin, Total 0.4 mg/dL (0.2-1.0); Total Protein 7.5 g/dL (5.7-8.2)
[2023-03-15 07:43] LABS: Lipase 72 U/L (12-53); Magnesium 2.5 mg/dL (1.6-2.6)
[2023-03-15 07:47] LABS: Base Excess -0.9 mmol/L (-2.0-2.0)
[2023-03-15] MEDS: SEVELAMER 800 MG TAB PO SCH ×3 (08:00→18:00)
[2023-03-15] MEDS: PANTOPRAZOLE 40 MG/10 ML VIAL INJ IV SCH ×2 (08:47→22:08)
[2023-03-15] MEDS: Nepro With Carb Steady 1 Liter Bottle GT SCH (08:47)
[2023-03-15] MEDS: Pro-Stat SF 30ml Vanilla GT SCH ×2 (08:51→22:09)
[2023-03-15 09:34] LABS: Eosinophils % (manual) 33 (0-7); Lymphocytes % (manual) 16 (10.0-50.0); Monocytes % (manual) 4 (0-12)
[2023-03-15 09:35] LABS: Platelet Estimate Adequate
[2023-03-15 12:31] LABS: Red Blood Cells 2.74 10^6/uL (4.5-5.90)
[2023-03-15 12:33] LABS: Hematocrit 25.3 % (41.0-53.0); Mean Corpuscular Hemoglobin 29.3 pg (28.0-32.0); Mean Corpuscular Hgb Conc. 31.8 g/dL (32.0-36.0); Mean Corpuscular Volume 92.3 fL (80.0-100.0)
[2023-03-15 12:39] LABS: Alanine Aminotransferase 27 U/L (7-40); Albumin 4.4 g/dL (3.2-4.8); Alkaline Phosphatase 174 U/L (46-116); Amylase 108 U/L (30-118); Anion Gap 12 (5-15); Aspartate Aminotransferase 65 U/L (13-40); BUN/Creatinine Ratio 8.5 (10.0-20.0); Blood Urea Nitrogen 45 mg/dL (9-23); Carbon Dioxide 23 mmol/L (20-30); Chloride 105 mmol/L (98-107); Cholesterol 123 mg/dL (< 200); Glucose 178 mg/dL (74-106); HDL Cholesterol 27 mg/dL (40-59); LDL Cholesterol 77 mg/dL (< 100); Potassium 3.6 mmol/L (3.5-5.1); Sodium 140 mmol/L (136-145); Triglycerides 133 mg/dL (< 150)
[2023-03-15 12:40] LABS: Bilirubin, Direct 0.2 mg/dL (<0.3); Bilirubin, Total 0.4 mg/dL (0.2-1.0); Phosphorus 3.8 mg/dL (2.4-5.1); Total Protein 7.3 g/dL (5.7-8.2)
[2023-03-15 12:41] LABS: INR 1.11 (0.9-1.15); Partial Thromboplastin Time 31.1 SEC (24.5-34.5); Prothrombin Time 11.6 sec (9.3-11.8)
[2023-03-15] MEDS: MIDAZOLAM DRIP 50 mg/50mL 50 ML IV SCH (12:45)
[2023-03-15 12:56] LABS: Magnesium 2.4 mg/dL (1.6-2.6)
[2023-03-15 12:57] LABS: Lipase 74 U/L (12-53)
[2023-03-15 13:15] LABS: Base Excess -1.5 mmol/L (-2.0-2.0)
[2023-03-15 13:35] LABS: Basophils % (manual) 0 (0.0-2.0); Blast Cells 0; Metamyelocytes % 0; Myelocytes % 0; Promyelocytes % 0
[2023-03-15 14:33] LABS: Band Neutrophils % (manual) 1; Eosinophils % (manual) 24 (0-7); Lymphocytes % (manual) 12 (10.0-50.0); Monocytes % (manual) 4 (0-12); Platelet Estimate Adequate; Reactive Lymphocytes 3
[2023-03-15] MEDS: fentaNYL Drip 2500mCg/250mlNS 250 ML IV SCH (14:45)
[2023-03-15] MEDS: NOREPINEPHRINE 8 MG/250ML KIT 250 ML IV SCH (15:23)
[2023-03-15] MEDS: PHENYLEPHRINE INJ 80 MG in SODIUM CHL 0.9% 242 ML IV SCH (17:30)
[2023-03-15 18:55] LABS: Base Excess -2.6 mmol/L (-2.0-2.0)
[2023-03-15 20:27] LABS: Basophils # (auto) 0.1 10 ^3/uL (0-0.2); Eosinophils # (auto) 1.9 10 ^3/uL (0-0.8); Hemoglobin 7.8 g/dL (13.5-17.5); Neutrophils # (auto) 4.3 10 ^3/uL (1.6-8.6); Nucleated Red Blood Cells % 0.1 %; Red Blood Cells 2.74 10^6/uL (4.5-5.90)
[2023-03-15 20:29] LABS: Basophils % (auto) 1.3 % (0.0-2.0); Hematocrit 25.4 % (41.0-53.0); Lymphocytes # (auto) 0.6 10 ^3/uL (0.4-5.4); Lymphocytes % (auto) 8.4 % (10.0-50.0); Mean Corpuscular Hemoglobin 28.5 pg (28.0-32.0); Mean Corpuscular Hgb Conc. 30.8 g/dL (32.0-36.0); Mean Corpuscular Volume 92.4 fL (80.0-100.0); Monocytes # (auto) 0.5 10 ^3/uL (0-1.3); Monocytes % (auto) 6.4 % (0.0-12.0); Neutrophils % (auto) 58.1 % (37.0-80.0); Red Cell Distribution Width 17.9 % (11.8-14.3); White Blood Cell 7.4 10^3/uL (4.4-10.8)
[2023-03-15 20:36] LABS: Lipase 75 U/L (12-53); Magnesium 2.5 mg/dL (1.6-2.6)
[2023-03-15 20:45] LABS: Alanine Aminotransferase 29 U/L (7-40); Albumin 4.3 g/dL (3.2-4.8); Alkaline Phosphatase 176 U/L (46-116); Amylase 108 U/L (30-118); Anion Gap 13 (5-15); Aspartate Aminotransferase 69 U/L (13-40); BUN/Creatinine Ratio 8.7 (10.0-20.0); Bilirubin, Direct 0.2 mg/dL (<0.3); Blood Urea Nitrogen 51 mg/dL (9-23); Calcium 9.8 mg/dL (8.5-10.1); Carbon Dioxide 23 mmol/L (20-30); Chloride 107 mmol/L (98-107); Glucose 132 mg/dL (74-106); Potassium 3.7 mmol/L (3.5-5.1); Sodium 143 mmol/L (136-145)
[2023-03-15 20:46] LABS: Bilirubin, Total 0.3 mg/dL (0.2-1.0); Phosphorus 4.2 mg/dL (2.4-5.1); Total Protein 7.3 g/dL (5.7-8.2)
[2023-03-15 21:16] LABS: Eosinophils % (auto) 25.8 % (0.0-7.0)
[2023-03-15 21:18] LABS: INR 1.09 (0.9-1.15); Partial Thromboplastin Time 31.3 SEC (24.5-34.5); Prothrombin Time 11.4 sec (9.3-11.8)
[2023-03-16] VITALS (104 sets, daily range): BP systolic 66–167; BP diastolic 11–101; PULSE 78–112; RESP 5–24; TEMP 97–98.8; O2SAT 82–100
[2023-03-16] MEDS: VASOPRESSIN 20 UNITS in SODIUM CHL 0.9% 99 ML IV SCH ×3 (00:09→22:02)
[2023-03-16] MEDS: ACCU-CHEK COMFORT CURVE STRIP VI SCH ×7 (00:17→23:18)
[2023-03-16] MEDS: InsuLIN REG 1unit/0.01ml Soln (100units/ml) SC SCH ×7 (00:20→23:22)
[2023-03-16 00:54] LABS: Hematocrit 24.3 % (41.0-53.0); Hemoglobin 7.6 g/dL (13.5-17.5); Mean Corpuscular Hemoglobin 29.1 pg (28.0-32.0); Mean Corpuscular Hgb Conc. 31.4 g/dL (32.0-36.0); Mean Corpuscular Volume 92.6 fL (80.0-100.0); Red Blood Cells 2.62 10^6/uL (4.5-5.90); White Blood Cell 6.6 10^3/uL (4.4-10.8)
[2023-03-16 01:10] LABS: Band Neutrophils % (manual) 0; Basophils % (manual) 0 (0.0-2.0); Blast Cells 0; INR 1.1 (0.9-1.15); Metamyelocytes % 0; Myelocytes % 0; Partial Thromboplastin Time 30.2 SEC (24.5-34.5); Promyelocytes % 0; Prothrombin Time 11.5 sec (9.3-11.8); Reactive Lymphocytes 0
[2023-03-16 01:12] LABS: Alanine Aminotransferase 29 U/L (7-40); Albumin 4.3 g/dL (3.2-4.8); Alkaline Phosphatase 178 U/L (46-116); Amylase 105 U/L (30-118); Anion Gap 14 (5-15); Aspartate Aminotransferase 65 U/L (13-40); BUN/Creatinine Ratio 9.6 (10.0-20.0); Blood Urea Nitrogen 56 mg/dL (9-23); Calcium 9.3 mg/dL (8.7-10.4); Carbon Dioxide 22 mmol/L (20-30); Chloride 106 mmol/L (98-107); Glucose 150 mg/dL (74-106); Lipase 76 U/L (12-53); Magnesium 2.4 mg/dL (1.6-2.6); Potassium 3.5 mmol/L (3.5-5.1); Sodium 142 mmol/L (136-145)
[2023-03-16 01:13] LABS: Bilirubin, Total 0.3 mg/dL (0.2-1.0); Phosphorus 4.2 mg/dL (2.4-5.1); Total Protein 7.2 g/dL (5.7-8.2)
[2023-03-16 01:26] LABS: Bilirubin, Direct 0.1 mg/dL (<0.3)
[2023-03-16 02:03] LABS: Lymphocytes % (manual) 10 (10.0-50.0); Monocytes % (manual) 4 (0-12)
[2023-03-16 02:04] LABS: Anisocytosis Slight; Eosinophils % (manual) 21 (0-7); Platelet Estimate Adequate; Target Cell FEW
[2023-03-16 04:02] LABS: Alanine Aminotransferase 28 U/L (7-40); Alkaline Phosphatase 157 U/L (46-116); Anion Gap 17 (5-15); Aspartate Aminotransferase 71 U/L (13-40); BUN/Creatinine Ratio 9.6 (10.0-20.0); Bilirubin, Total 0.2 mg/dL (0.2-1.0); Blood Urea Nitrogen 51 mg/dL (9-23); Calcium 8.5 mg/dL (8.7-10.4); Carbon Dioxide 17 mmol/L (20-30); Chloride 111 mmol/L (98-107); Glucose 117 mg/dL (74-106); Potassium 3.4 mmol/L (3.5-5.1); Sodium 145 mmol/L (136-145)
[2023-03-16 04:03] LABS: Total Protein 6.5 g/dL (5.7-8.2)
[2023-03-16 06:20] LABS: Hemoglobin 7.9 g/dL (13.5-17.5)
[2023-03-16 06:24] LABS: Hematocrit 24.9 % (41.0-53.0)
[2023-03-16 07:17] LABS: Base Excess -0.9 mmol/L (-2.0-2.0)
[2023-03-16] MEDS: SEVELAMER 800 MG TAB PO SCH ×3 (08:00→18:00)
[2023-03-16] MEDS: Pro-Stat SF 30ml Vanilla GT SCH ×2 (10:00→21:24)
[2023-03-16] MEDS ORDERED: SODIUM CHL 0.9% 1000 ML BAG XX ONE (10:15)
[2023-03-16] MEDS: PANTOPRAZOLE 40 MG/10 ML VIAL INJ IV SCH ×2 (10:51→21:10)
[2023-03-16] MEDS: NOREPINEPHRINE 8 MG/250ML KIT 250 ML IV SCH (11:00)
[2023-03-16] MEDS: MIDAZOLAM DRIP 50 mg/50mL 50 ML IV SCH (12:45)
[2023-03-16] MEDS: fentaNYL Drip 2500mCg/250mlNS 250 ML IV SCH (14:45)
[2023-03-16] MEDS: PHENYLEPHRINE INJ 80 MG in SODIUM CHL 0.9% 242 ML IV SCH (17:30)
[2023-03-16] MEDS ORDERED: EPOETIN ALFA-EPBX 10,000 UNIT/1ML VIAL SC ONE (21:00)
[2023-03-17] VITALS (100 sets, daily range): BP systolic 76–172; BP diastolic 12–105; PULSE 79–93; RESP 10–26; TEMP 98.1–99.5; O2SAT 99–100
[2023-03-17] MEDS: ACCU-CHEK COMFORT CURVE STRIP VI SCH ×5 (04:00→21:24)
[2023-03-17] MEDS: InsuLIN REG 1unit/0.01ml Soln (100units/ml) SC SCH ×5 (04:00→21:25)
[2023-03-17 04:34] LABS: Basophils # (auto) 0.1 10 ^3/uL (0-0.2); Hematocrit 24.1 % (41.0-53.0); Hemoglobin 7.7 g/dL (13.5-17.5); Monocytes # (auto) 0.5 10 ^3/uL (0-1.3); Nucleated Red Blood Cells % 0.1 %; White Blood Cell 8.3 10^3/uL (4.4-10.8)
[2023-03-17 04:37] LABS: Basophils % (auto) 1.2 % (0.0-2.0); Eosinophils # (auto) 1.2 10 ^3/uL (0-0.8); Eosinophils % (auto) 14.7 % (0.0-7.0); Lymphocytes # (auto) 0.7 10 ^3/uL (0.4-5.4); Lymphocytes % (auto) 7.9 % (10.0-50.0); Mean Corpuscular Hemoglobin 29.1 pg (28.0-32.0); Mean Corpuscular Hgb Conc. 31.9 g/dL (32.0-36.0); Mean Corpuscular Volume 91.2 fL (80.0-100.0); Monocytes % (auto) 5.6 % (0.0-12.0); Neutrophils # (auto) 5.8 10 ^3/uL (1.6-8.6); Neutrophils % (auto) 70.6 % (37.0-80.0); Red Blood Cells 2.65 10^6/uL (4.5-5.90); Red Cell Distribution Width 18.2 % (11.8-14.3)
[2023-03-17 04:47] LABS: Chloride 105 mmol/L (98-107); Potassium 3.5 mmol/L (3.5-5.1); Sodium 143 mmol/L (136-145)
[2023-03-17 04:48] LABS: Anion Gap 13 (5-15); Calcium 9.5 mg/dL (8.7-10.4); Carbon Dioxide 25 mmol/L (20-30)
[2023-03-17 04:53] LABS: BUN/Creatinine Ratio 8.1 (10.0-20.0); Glucose 142 mg/dL (74-106)
[2023-03-17 04:55] LABS: Blood Urea Nitrogen 38 mg/dL (9-23)
[2023-03-17] MEDS: SEVELAMER 800 MG TAB PO SCH ×3 (08:00→17:23)
[2023-03-17 08:18] LABS: Base Excess 3.6 mmol/L (-2.0-2.0)
[2023-03-17] MEDS: VASOPRESSIN 20 UNITS in SODIUM CHL 0.9% 99 ML IV SCH ×2 (09:30→20:37)
[2023-03-17] MEDS: Pro-Stat SF 30ml Vanilla GT SCH ×2 (10:00→21:24)
[2023-03-17] MEDS: NOREPINEPHRINE 8 MG/250ML KIT 250 ML IV SCH (11:00)
[2023-03-17] MEDS: PANTOPRAZOLE 40 MG/10 ML VIAL INJ IV SCH ×2 (12:05→21:24)
[2023-03-17] MEDS: MIDAZOLAM DRIP 50 mg/50mL 50 ML IV SCH (12:45)
[2023-03-17] MEDS: fentaNYL Drip 2500mCg/250mlNS 250 ML IV SCH (14:45)
[2023-03-17] MEDS: PHENYLEPHRINE INJ 80 MG in SODIUM CHL 0.9% 242 ML IV SCH (17:30)
[2023-03-17] MEDS ORDERED: DEXTROSE (50%) 50ML SYRG IV PRN (17:30)
[2023-03-17] MEDS ORDERED: NOREPINEPHRINE 8 MG/250ML KIT 250 ML IV SCH ×2 (18:30)
[2023-03-18] VITALS (57 sets, daily range): BP systolic 105–164; BP diastolic 11–69; PULSE 63–88; RESP 0–21; TEMP 97.5–98.4; O2SAT 52–100
[2023-03-18] MEDS: ACCU-CHEK COMFORT CURVE STRIP VI SCH (05:48)
[2023-03-18] MEDS: InsuLIN REG 1unit/0.01ml Soln (100units/ml) SC SCH (05:48)
[2023-03-18] MEDS ORDERED: SODIUM CHL 0.9% 1000 ML BAG XX ONE (07:00)
[2023-03-18] MEDS: VASOPRESSIN 20 UNITS in SODIUM CHL 0.9% 99 ML IV SCH (07:44)
[2023-03-18] MEDS: SEVELAMER 800 MG TAB PO SCH (08:00)
[2023-03-18] MEDS: PANTOPRAZOLE 40 MG/10 ML VIAL INJ IV SCH (10:02)
[2023-03-18] MEDS: Pro-Stat SF 30ml Vanilla GT SCH (10:02)
[2023-03-18] MEDS ORDERED: LORazepam 2MG/ML-1ML VIAL IV PRN (11:30)
[2023-03-18] MEDS ORDERED: MORPHINE SULFATE INJ 2 MG/ml SYRG IV PRN (11:30)
[2023-03-18] MEDS ORDERED: EPOETIN ALFA-EPBX 10,000 UNIT/1ML VIAL SC ONE (21:00)
== END 2023-03-18 18:00 | DRG 720 ==
LOC: ER 10:10 → EDBD 10:10 → TELE 11:47 → ICU WEST 23:41
PROVIDERS: ADMIT Internal Medicine; ATTEND Emergency Medicine
PROC: 5A1955Z Respiratory Ventilation, Greater than 96 Consecutive Hours (ICD-10-PCS; principal; 2023-02-19)
PROC: 0BH17EZ Insertion of Endotracheal Airway into Trachea, Via Natural or Artificial Opening (ICD-10-PCS; 2023-02-19)
PROC: 5A1D70Z Performance of Urinary Filtration, Intermittent, Less than 6 Hours Per Day (ICD-10-PCS; 2023-02-19)
PROC: 5A12012 Performance of Cardiac Output, Single, Manual (ICD-10-PCS; 2023-02-19)
PROC: 3E0A3GC Introduction of Other Therapeutic Substance into Bone Marrow, Percutaneous Approach (ICD-10-PCS; 2023-02-19)
PROC: 5A1D70Z Performance of Urinary Filtration, Intermittent, Less than 6 Hours Per Day (ICD-10-PCS; 2023-02-21)
PROC: 0W993ZZ Drainage of Right Pleural Cavity, Percutaneous Approach (ICD-10-PCS; 2023-02-21)
PROC: 5A1D70Z Performance of Urinary Filtration, Intermittent, Less than 6 Hours Per Day (ICD-10-PCS; 2023-02-24)
PROC: 0W993ZZ Drainage of Right Pleural Cavity, Percutaneous Approach (ICD-10-PCS; 2023-02-24)
PROC: 0W9930Z Drainage of Right Pleural Cavity with Drainage Device, Percutaneous Approach (ICD-10-PCS; 2023-02-28)
PROC: 5A1D70Z Performance of Urinary Filtration, Intermittent, Less than 6 Hours Per Day (ICD-10-PCS; 2023-03-01)
PROC: 5A2204Z Restoration of Cardiac Rhythm, Single (ICD-10-PCS; 2023-03-01)
PROC: 5A1D70Z Performance of Urinary Filtration, Intermittent, Less than 6 Hours Per Day (ICD-10-PCS; 2023-03-09)
PROC: 05H333Z Insertion of Infusion Device into Right Innominate Vein, Percutaneous Approach (ICD-10-PCS; 2023-03-09)
PROC: B54MZZA Ultrasonography of Right Upper Extremity Veins, Guidance (ICD-10-PCS; 2023-03-09)
PROC: 5A1D70Z Performance of Urinary Filtration, Intermittent, Less than 6 Hours Per Day (ICD-10-PCS; 2023-03-11)
PROC: 5A1D70Z Performance of Urinary Filtration, Intermittent, Less than 6 Hours Per Day (ICD-10-PCS; 2023-03-14)
PROC: 4A133B1 Monitoring of Arterial Pressure, Peripheral, Percutaneous Approach (ICD-10-PCS; 2023-03-14)
PROC: 0B9H8ZX Drainage of Lung Lingula, Via Natural or Artificial Opening Endoscopic, Diagnostic (ICD-10-PCS; 2023-03-15)
PROC: 0B9D8ZX Drainage of Right Middle Lung Lobe, Via Natural or Artificial Opening Endoscopic, Diagnostic (ICD-10-PCS; 2023-03-15)
PROC: 5A1D70Z Performance of Urinary Filtration, Intermittent, Less than 6 Hours Per Day (ICD-10-PCS; 2023-03-16)
PROC: 5A1D70Z Performance of Urinary Filtration, Intermittent, Less than 6 Hours Per Day (ICD-10-PCS; 2023-03-18)
DX: A41.9 Sepsis, unspecified organism (principal); I46.9 Cardiac arrest, cause unspecified; D65 Disseminated intravascular coagulation [defibrination syndrome]; K72.00 Acute and subacute hepatic failure without coma; G92.8 Other toxic encephalopathy; J69.0 Pneumonitis due to inhalation of food and vomit; J96.01 Acute respiratory failure with hypoxia; J96.02 Acute respiratory failure with hypercapnia; K92.2 Gastrointestinal hemorrhage, unspecified; I21.4 Non-ST elevation (NSTEMI) myocardial infarction; R65.21 Severe sepsis with septic shock; N18.6 End stage renal disease; D63.1 Anemia in chronic kidney disease; E87.20 Acidosis, unspecified; I50.23 Acute on chronic systolic (congestive) heart failure; I13.2 Hypertensive heart and chronic kidney disease with heart failure and with stage 5 chronic kidney disease, or end stage renal disease; N39.0 Urinary tract infection, site not specified; Z99.2 Dependence on renal dialysis; E11.22 Type 2 diabetes mellitus with diabetic chronic kidney disease; E78.5 Hyperlipidemia, unspecified; I47.19 Other supraventricular tachycardia; J93.9 Pneumothorax, unspecified; E87.6 Hypokalemia; I27.20 Pulmonary hypertension, unspecified; J34.1 Cyst and mucocele of nose and nasal sinus; Z79.82 Long term (current) use of aspirin; Z79.899 Other long term (current) drug therapy; Z79.01 Long term (current) use of anticoagulants; Z79.4 Long term (current) use of insulin
CPT/HCPCS: 31624; 36415; 36556; 36600; 70450; 70551; 71045; 71046; 71250; 71275; 74176; 76604; 76700; 76705; 76942; 80048; 80053; 80061; 80074; 80202; 80307; 81001; 82150; 82248; 82270; 82306; 82607; 82728; 82805; 82962; 82977; 83036; 83540; 83550; 83605; 83615; 83690; 83735; 83880; 83970; 83986; 84100; 84132; 84443; 84484; 85007; 85014; 85018; 85025; 85027; 85379; 85610; 85730; 86141; 86812; 86850; 86900; 86901; 87040; 87070; 87077; 87081; 87086; 87186; 87205; 89051; 90935; 93005; 93306; 93970; 94002; 94003; 95819; 99291; C9113; G0378; J0171; J0330; J1642; J1815; J2001; J2250; J2543; J2704; J3480; J7060; P9047

== ENCOUNTER 2023-03-18 13:27 | Inpatient (IN) | payer OTHER | END 2023-03-18 13:30 | DRG 871 | LOC: OVERFLOW 13:27 | PROVIDERS: ADMIT Internal Medicine; ATTEND Internal Medicine | DX: A41.9 Sepsis, unspecified organism (principal); A92.30 West Nile virus infection, unspecified; J69.0 Pneumonitis due to inhalation of food and vomit; I21.4 Non-ST elevation (NSTEMI) myocardial infarction; I50.23 Acute on chronic systolic (congestive) heart failure; J96.00 Acute respiratory failure, unspecified whether with hypoxia or hypercapnia; N18.6 End stage renal disease; G93.41 Metabolic encephalopathy; D65 Disseminated intravascular coagulation [defibrination syndrome]; J90 Pleural effusion, not elsewhere classified; G93.1 Anoxic brain damage, not elsewhere classified; J93.9 Pneumothorax, unspecified; I27.20 Pulmonary hypertension, unspecified; I48.91 Unspecified atrial fibrillation; D63.8 Anemia in other chronic diseases classified elsewhere; I46.9 Cardiac arrest, cause unspecified; E11.22 Type 2 diabetes mellitus with diabetic chronic kidney disease; I69.928 Other speech and language deficits following unspecified cerebrovascular disease; I69.998 Other sequelae following unspecified cerebrovascular disease | CPT/HCPCS: G0378 ==